=== PATIENT | male | born 1980 | race Caucasian/White ===

== ENCOUNTER 2017-03-08 16:27 | Emergency (ER) | payer MEDICAID, OTHER ==
[~2017-03-08] VITALS: Ht 180.3 cm; Wt 143.3 kg
[2017-03-08 17:04] VITALS: BP 144/79
--- NOTE | 2017-03-08 19:02 | NUR ---
Patient ambulated to bed 8. RN evaluating patient at bedside.
--- NOTE | 2017-03-08 19:02 | NUR ---
36 Y/O M W/C/O REQUESTING EVALUATION OF ETOH AND WANTING TO START ON LIBRIUM TO STOP DRINKING. HX ANXIETY AND HTN. VSS, PT DENIES ANY PAIN AT THE MOMENT.
--- NOTE | 2017-03-08 19:08 | NUR ---
Dr. Dasilva evaluating patient at bedside.
[2017-03-08 19:31] VITALS: BP 119/69
--- NOTE | 2017-03-08 19:31 | NUR ---
Patient discharged with v/s stable. Written and verbal after care instructions given and explained. Patient alert, oriented and verbalized understanding of instructions. Ambulatory with steady gait. All questions addressed prior to discharge. ID band removed. Patient advised to follow up with PMD OR RETURN BACK TO ER IF CONDITION WORSENS. Rx of CHLORDIAZEPOXIDE given. Patient educated on indication of medication including possible reaction and side effects. Opportunity to ask questions provided and answered.
== END 2017-03-08 19:31 | disposition home or self-care (01) ==
LOC: MED 16:27
DX: F10.10 Alcohol abuse, uncomplicated (principal); F41.9 Anxiety disorder, unspecified; I10 Essential (primary) hypertension
CPT/HCPCS: 99283

== ENCOUNTER 2018-10-25 09:50 | Emergency (ER) | payer MEDICAID ==
[~2018-10-25] VITALS: Ht 180.3 cm; Wt 146.1 kg
[2018-10-25 10:01] VITALS: BP 152/92
--- NOTE | 2018-10-25 10:10 | NUR ---
PATIENT AMBULATED TO BED 4 AT THIS TIME.
--- NOTE | 2018-10-25 10:17 | NUR ---
PT PRESENTS TO ED WITH COMPLAINTS OF ALCOHOL WITHDRAWAL. PT STATES HE IS FEELING ANXIOUS AND GENERALIZED BODY ACHES. WAS TELLING ED MD THAT HE NEEDS LITHIUM TO HELP WITH SYMPTOMS. PT IS SPEAKING EXCESSIVELY AND FIDGETING. HX OF SCHIZOPHRENIA AND BIPOLAR.
[2018-10-25 11:56] VITALS: BP 150/89
--- NOTE | 2018-10-25 11:57 | NUR ---
Patient discharged with v/s stable. Written and verbal after care instructions given and explained. Patient alert, oriented and verbalized understanding of instructions. Ambulatory with steady gait. All questions addressed prior to discharge. ID band removed. Patient advised to follow up with PMD. Rx of LIBRIUM given. Patient educated on indication of medication including possible reaction and side effects. Opportunity to ask questions provided and answered.
== END 2018-10-25 11:57 | disposition home or self-care (01) ==
LOC: MED 09:50
DX: F10.239 Alcohol dependence with withdrawal, unspecified (principal); F41.9 Anxiety disorder, unspecified; I10 Essential (primary) hypertension; F17.200 Nicotine dependence, unspecified, uncomplicated; Y90.9 Presence of alcohol in blood, level not specified
CPT/HCPCS: 99283

== ENCOUNTER 2020-07-25 08:41 | Inpatient (IN) | payer OTHER, SELFPAY ==
[~2020-07-25] VITALS: Ht 180.3 cm; Wt 90.7 kg
--- NOTE | 2020-07-25 08:41 | NUR ---
Patient BIBA BLS, transferred to bed 7. RN evaluating patient at bedside.
[2020-07-25 08:45] VITALS: BP 115/84
[2020-07-25] MEDS ORDERED: NACL 0.9% 1,000 ML IV SCH (08:55)
[2020-07-25 09:26] LABS: BASOPHILS % (AUTO) 0.7 % (0.0-2.0); EOSINOPHILS % (AUTO) 0.5 % (0.0-4.0); HEMATOCRIT 33.9 % (36-52); HEMOGLOBIN 11.3 g/dL (12.0-18.0); LYMPHOCYTES # (AUTO) 0.9 K/uL (2.0-11.5); LYMPHOCYTES % (AUTO) 19.1 % (20.5-51.1); MEAN CORPUSCULAR HEMOGLOBIN 32 pg (27-31); MEAN CORPUSCULAR HGB CONC 33 g/dL (33-37); MEAN CORPUSCULAR VOLUME 95.9 fL (80-94); MONOCYTES # (AUTO) 0.5 K/uL (0.8-1.0); MONOCYTES % (AUTO) 10.2 % (1.7-9.3); NEUTROPHILS # (AUTO) 3.2 K/uL (1.8-7.7); NEUTROPHILS % (AUTO) 69.5 % (42.2-75.2); PLATELET COUNT (AUTO) 112 K/uL (140-450); RED BLOOD CELL COUNT(AUTO) 3.53 MIL/uL (4.20-6.10); RED CELL DISTRIBUTION WIDTH 14.7 % (11.6-13.7); WHITE BLOOD COUNT (AUTO) 4.6 K/uL (4.8-10.8)
[2020-07-25] MEDS ORDERED: chlordiazePOXIDE 25 MG CAP ONE (09:33)
[2020-07-25] MEDS ORDERED: chlordiazePOXIDE 25 MG CAP PO SCH ×3 (09:40→13:00)
[2020-07-25 09:43] LABS: ALBUMIN 2.8 g/dL (3.4-5.0); ANION GAP 15.4 (8-16); CARBON DIOXIDE 27.2 mmol/L (21-32); CREATININE 0.6 mg/dL (0.6-1.3); POTASSIUM 3.6 mmol/L (3.5-5.1)
--- NOTE | 2020-07-25 09:52 | NUR ---
Patient returned from CT scan. RN reevaluating the patient at bedside.
[2020-07-25] MEDS ORDERED: cefTRIAXone 1,000 MG VIAL ONE (09:53)
[2020-07-25] MEDS ORDERED: BACITRACIN OINT 500 UNITS/GM PKT TP ONE (10:04)
[2020-07-25] MEDS ORDERED: ONDANSETRON 4 MG/2 ML VIAL IVP PRN (12:25)
[2020-07-25] MEDS ORDERED: ACETAMINOPHEN 325 MG TAB PO PRN (12:25)
[2020-07-25] MEDS ORDERED: DEXT 5% /NACL 0.9% 1,000 ML IV SCH (12:25)
[2020-07-25] MEDS: chlordiazePOXIDE 25 MG CAP PO SCH ×3 (12:30→21:43)
[2020-07-25 13:50] VITALS: BP 120/55
--- NOTE | 2020-07-25 13:50 | NUR ---
Patient will be admitted to care of DR BUENROSTRO. Admited to MED/SURG. Will go to room 106-B. Belongings list completed. Report to ADAM MENDOZA. ALL QUESTIONS ANSWERED, ENDORSED PT IN STABLE CONDITION, IN NAD, VSS. PT IN AGREEMENT WITH ADMISSION.
--- NOTE | 2020-07-25 14:17 | NUR ---
PATIENT ARRIVED FROM ER. TRANSFERRED SAFELY TO [facility] BED. BLE CELLULITIS REDNESS, INTACT, NO WEAPING OR OPEN WOUNDS. SCHEDULED MEDICATIONS DUE GIVEN. ON O2 2L/MIN VIA NC. ORIENTED PATIENT TO ROOM AND CALL LIGHT. SAFETY MEASURES IN PLACE, CALL LIGHT WITHIN REACH. WILL CONTINUE TO MONITOR.
[2020-07-25 16:00] VITALS: BP 120/55
--- NOTE | 2020-07-25 17:00 | NUR ---
PATIENT LYING DOWN IN BED SLEEPING, AROUSABLE BY VOICE. CONDITION UNCHANGED. WILL CONTINUE TO MONITOR .
[2020-07-25] MEDS ORDERED: LORazepam 2 MG/ML VIAL IVP PRN (17:20)
[2020-07-25] MEDS: DEXT 5% /NACL 0.9% 1,000 ML IV SCH (18:14)
[2020-07-25] MEDS ORDERED: Z-GUARD PASTE TP ONE (18:23)
--- NOTE | 2020-07-25 19:40 | NUR ---
GAVE REPORT TO IT MANAGER NURSE FOR CONTINUITY OF CARE. PATIENT IN STABLE CONDITION.
[2020-07-26] MEDS ORDERED: Z-GUARD PASTE TP SCH (01:00)
[2020-07-26] MEDS: DEXT 5% /NACL 0.9% 1,000 ML IV SCH ×2 (06:11→09:20)
--- NOTE | 2020-07-26 06:45 | NUR ---
PATIENT HAS BEEN SCREENED AND CATEGORIZED HIGH NUTRITION RISK. PATIENT WILL BE SEEN WITHIN 1-2 DAYS OF ADMISSION. 07/26/19-07/27/20 KRISTEL ADKINS MS, RDN
--- NOTE | 2020-07-26 07:30 | NUR ---
RECEIVED REPORT FROM TRIM MECHANIC NURSE. PATIENT IN BED AWAKE, ALERT, AOX3. PATIENT IS NOTED FALL RISK. IV SITE IN PLACE AND INTACT. SAFETY MEASURES ARE IN PLACE. CALL LIGHT WITHIN REACH. WILL CONTINUE TO MONITOR NEEDED.
[2020-07-26 07:54] LABS: BASOPHILS % (AUTO) 0.3 % (0.0-2.0); EOSINOPHILS % (AUTO) 0.5 % (0.0-4.0); HEMATOCRIT 26.7 % (36-52); LYMPHOCYTES # (AUTO) 0.7 K/uL (2.0-11.5); MEAN CORPUSCULAR HEMOGLOBIN 32 pg (27-31); MEAN CORPUSCULAR HGB CONC 34 g/dL (33-37); MEAN CORPUSCULAR VOLUME 95.6 fL (80-94); MONOCYTES # (AUTO) 0.4 K/uL (0.8-1.0); NEUTROPHILS # (AUTO) 2.4 K/uL (1.8-7.7); PLATELET COUNT (AUTO) 67 K/uL (140-450); RED CELL DISTRIBUTION WIDTH 15.6 % (11.6-13.7); WHITE BLOOD COUNT (AUTO) 3.6 K/uL (4.8-10.8)
[2020-07-26 08:00] VITALS: BP 106/48
[2020-07-26 08:34] VITALS: BP 126/62
[2020-07-26 08:34] LABS: ALBUMIN 2.2 g/dL (3.4-5.0); ANION GAP 11.7 (8-16); CARBON DIOXIDE 27.4 mmol/L (21-32); CREATININE 0.6 mg/dL (0.6-1.3); POTASSIUM 3.1 mmol/L (3.5-5.1); TOTAL BILIRUBIN 4.4 mg/dL (0.0-1.0)
[2020-07-26] MEDS: chlordiazePOXIDE 25 MG CAP PO SCH ×3 (08:58→20:13)
--- NOTE | 2020-07-26 09:00 | NUR ---
MEDICATIONS DUE GIVEN TO PATIENT. PATIENT LAB RESULTS FOR POTASSIUM IS 3.1 [address] IS 1.4. [address] BUENROSTRO MADE AWARE OF LOW LAB RESULTS WITH NEW ORDERS. WILL CONTINUE TO MONITOR NEEDED.
[2020-07-26 09:05] LABS: LYMPHOCYTES % (AUTO) 18.7 % (20.5-51.1); MONOCYTES % (AUTO) 12.5 % (1.7-9.3)
[2020-07-26] MEDS ORDERED: MAG SULF 2000 MG/WATER PREMIX 50 ML IV SCH (09:15)
[2020-07-26] MEDS ORDERED: POTASSIUM CHLORIDE 10 MEQ TABER PO SCH (09:15)
[2020-07-26] MEDS ORDERED: MULTIVITAMIN-12 10 ML, THIAMINE 100 MG, MAGNESIUM SULFATE 50% 2,000 MG, FOLIC ACID 1 MG... IV SCH ×5 (10:00)
[2020-07-26] MEDS ORDERED: VANCOMYCIN PER PHARMACY MC PRN (10:00)
--- NOTE | 2020-07-26 11:00 | NUR ---
PATIENT IV OUT AND REINSERTED IV ON THE RIGHT HAND AND LEFT HAND.
[2020-07-26 12:00] VITALS: BP 134/77
--- NOTE | 2020-07-26 12:00 | NUR ---
MEDICATION DUE GIVEN INFUSING WELL
--- NOTE | 2020-07-26 13:00 | NUR ---
Z GUARD APPLIED ON THE PERINEAL AND SCROTAL AREA.
[2020-07-26] MEDS: VANCOMYCIN 1,750 MG in DEXTROSE 5% 500 ML IV SCH ×2 (13:24→23:39)
[2020-07-26] MEDS: DEXT 5% / NACL 0.9% 1,000 ML IV SCH ×2 (14:35→23:38)
[2020-07-26] MEDS ORDERED: LORazepam 2 MG/ML VIAL IVP PRN (15:10)
[2020-07-26 16:00] VITALS: BP 133/66
--- NOTE | 2020-07-26 17:00 | NUR ---
MEDICATION DUE GIVEN CHECK VITAL SIGN PRIOR TO MEDICATION BP 133/66 IA 79. PATIENT COMPLAINS OF PAIN ON BOTH LOWER EXTREMITIES PAIN MEDICATION GIVEN
[2020-07-26] MEDS: HYDROcodone/APAP 5/325 MG 1 TAB TAB PO PRN ×2 (17:20→23:37)
--- NOTE | 2020-07-26 19:29 | NUR ---
ENDORSED CONTINUATION OF CARE TO PLOW AND BORING MACHINE TENDER NURSE. PT IS IN STABLE CONDITION.
[2020-07-26 20:00] VITALS: BP 122/68
[2020-07-26] MEDS: MAGNESIUM OXIDE 400 MG TAB PO SCH (20:13)
[2020-07-27 04:00] VITALS: BP 121/61
[2020-07-27] MEDS: DEXT 5% / NACL 0.9% 1,000 ML IV SCH ×3 (05:12→21:08)
[2020-07-27] MEDS: HYDROcodone/APAP 5/325 MG 1 TAB TAB PO PRN ×3 (05:15→20:29)
[2020-07-27 06:29] LABS: BASOPHILS % (AUTO) 0.6 % (0.0-2.0); EOSINOPHILS # (AUTO) 0.1 K/uL (0-0.4); EOSINOPHILS % (AUTO) 1.7 % (0.0-4.0); HEMATOCRIT 27.6 % (36-52); HEMOGLOBIN 9.3 g/dL (12.0-18.0); LYMPHOCYTES # (AUTO) 0.8 K/uL (2.0-11.5); LYMPHOCYTES % (AUTO) 25.4 % (20.5-51.1); MEAN CORPUSCULAR HEMOGLOBIN 33 pg (27-31); MEAN CORPUSCULAR HGB CONC 34 g/dL (33-37); MEAN CORPUSCULAR VOLUME 95.8 fL (80-94); MONOCYTES # (AUTO) 0.3 K/uL (0.8-1.0); MONOCYTES % (AUTO) 10.7 % (1.7-9.3); NEUTROPHILS # (AUTO) 1.9 K/uL (1.8-7.7); NEUTROPHILS % (AUTO) 61.6 % (42.2-75.2); PLATELET COUNT (AUTO) 61 K/uL (140-450); RED BLOOD CELL COUNT(AUTO) 2.87 MIL/uL (4.20-6.10); RED CELL DISTRIBUTION WIDTH 15.2 % (11.6-13.7)
[2020-07-27 06:35] LABS: BENZODIAZEPINE, URINE POS ng/mL (NEG <=200); CANNABINOID, URINE NEGATIVE ng/mL (NEG <=50); COCAINE, URINE NEGATIVE ng/mL (NEG <=300); OPIATE, URINE NEGATIVE ng/mL (NEG <=2000); PHENCYCLIDINE SCREEN,URINE NEGATIVE ng/mL (NEG <=25)
[2020-07-27 06:36] LABS: BARBITURATE, URINE NEGATIVE ng/ml (NEG <=200)
--- NOTE | 2020-07-27 07:11 | NUR ---
NURSE REPORT REPORT OBTAINED FROM NIGHT NURSE EVARISTO AT 07 AND THIS NURSE ASSUME CARE OF PATIENT UNTIL 729. T MAX- 99.6 F. RECEIVED NORCO FOR PAIN X 2, FOR PAIN IN BLE. ON VANCO. BANANA BAG IS DAILY. MED SURG PATIENT. ABLE TO AMB BUT WITH A UNSTEADY GAIT. ASKED FOR LIBRIUM FOR ANXIETY, BUT NOT YET DUE. GIVEN ATIVAN 0.5 MG IVP WITH RELIEF. REPORT GIVEN TO DAYSHIFT NURSE BANGURA TO ASSUME CARE OF PATIENT.
[2020-07-27 07:28] LABS: PROTHROMBIN TIME 13.3 secs (10.8-13.4)
--- NOTE | 2020-07-27 07:30 | NUR ---
RECEIVED REPORT FROM PIPE FINISHER NURSE. PATIENT IN BED AWAKE, ALERT, AOX3. RESPIRATIONS EVEN AND LABORED. ON ROOM AIR WITH O2 SATURATION AT 97%. SKIN IS INTACT WITH CELLULITIS ON LOWER EXTREMITIES. IV SITE ON LFA [address] AND INTACT. PLAN OF CARE WAS DISCUSSED. SAFETY MEASURES ARE IN PLACE. CALL LIGHT WITHIN REACH. WILL CONTINUE TO MONITOR NEEDED.
[2020-07-27 07:49] LABS: ALBUMIN 2.1 g/dL (3.4-5.0); ANION GAP 12.4 (8-16); CARBON DIOXIDE 26.4 mmol/L (21-32); CREATININE 0.5 mg/dL (0.6-1.3); MAGNESIUM 1.7 mg/dL (1.8-2.4); TOTAL BILIRUBIN 4.7 mg/dL (0.0-1.0)
[2020-07-27 08:00] VITALS: BP 131/82
--- NOTE | 2020-07-27 08:45 | NUR ---
FNS CONSULT RECEIVED FOR WOUNDS/PRESSURE ULCERS NOT APPROPRIATE FOR CELLULITIS. PATIENT WAS RE-SCREENED AND CATEGORIZED LOW NUTRITIONAL RISK AND WILL BE ASSESSED 7 DAYS WITHIN ADMISSION. 08/01/[address]
[2020-07-27] MEDS: chlordiazePOXIDE 25 MG CAP PO SCH ×4 (09:30→20:29)
--- NOTE | 2020-07-27 09:30 | NUR ---
ALL SCHEDULED MEDS GIVEN. PT IS STABLE NO DISTRESS NOTED. WILL CONTINUE TO MONITOR.
[2020-07-27] MEDS: MAGNESIUM OXIDE 400 MG TAB PO SCH ×2 (09:31→20:29)
[2020-07-27 09:36] LABS: POTASSIUM 2.8 mmol/L (3.5-5.1)
--- NOTE | 2020-07-27 10:05 | NUR ---
WOUND CARE EVALUATION NOTE: SKIN ASSESSMENT DONE WITH THIS PT. AAX4 ABLE TO TURN AN REPOSITION, MAD TO GROINS AND BUTTOCKS, BILATERAL LOWER LEG TO OXANA-ANKLE SKIN WARM WITH ERYTHEMA, PT. DENY NEEDLE INJECTIONS, MULTIPLE DRY SCABS AND ABRASIONS TO BLE, DORSAL FOOT +1 EDEMA, MULTIPLE ABRASIONS, NO OPEN ACTIVE WOUND.WOUND CARE TEACHING DONE AND POC DISCUSSED WITH PT. PT. VERBALIZES UNDERSTANDING. RECOMMEND TO CONTINUE ANTIBIOTIC TX FOR CELLULITIS. PAINT BLE SCABS/ABRASIONS WITH BETADINE SOLUTION BID AND OPEN TO AIR. Addendum: 07/27/20 at 1217 by Petreson Herrera RN (Grace) PLEASE CONTINUE Z-GUARD TO SCROTAL/PERINEAL MAD AREA ORDERED
[2020-07-27] MEDS: THIAMINE 100 MG TAB PO SCH (11:26)
[2020-07-27] MEDS: POTASSIUM CHLORIDE 10 MEQ TABER PO SCH ×2 (11:27→12:34)
--- NOTE | 2020-07-27 12:38 | NUR ---
PATIENT COMPLAINED OF LEG PAIN 12/03. ADMINISTERED NORCO PO PER MD ORDERED.
[2020-07-27] MEDS: VANCOMYCIN HCL 1.25 GM in DEXTROSE 5% 250 ML IV SCH ×2 (13:00→20:29)
[2020-07-27] MEDS: GAUZE TP SCH (13:00)
--- NOTE | 2020-07-27 14:00 | NUR ---
CHECKED ON PATIENT. PATIENT IS STABLE. NO RESPIRATORY DISTRESS OR CC OF COMPLAIN NOTED. WILL CONTINUE TO MONITOR.
--- NOTE | 2020-07-27 15:43 | NUR ---
DISCHARGE PLANNING: THIS IS A 39 Y/O MALE PATIENT BIBA FROM HOME DUE TO FALL, ALCOHOL ABUSE. PAST MEDICAL HISTORY INCLUDE ALCOHOL AND METHAMPHETAMINE ABUSE. INITIAL DIAGNOSIS OF ALCOHOL INTOXICATION. CURRENT LABS INCLUDE WBC 3.0, H/H 9.3/27.6, NA/K 138/2.8, BUN/CREA 8/0.5. UDS SHOWED POSITIVE FOR BENZO AND ALCOHOL LEVE; 443. RAPID COVID TEST NEGATIVE. ON ROOM AIR, O2 SAT 95%. ON VANCO AND ROCEPHIN. DC PLAN PENDING ON PATIENT'S RESPONSE TO TREATMENT. Addendum: 07/28/20 at 1518 by Ursula Sales CM DC LGSW: FAXED ORDER FOR SNF FOR IV ABX TO [facility]. ANAMARIA ESPANA AT [facility] SHE ASKED TO SEND THE REFERRAL TO [facility] Addendum: 07/29/20 at 1035 by Ursula Saels CM ANANTH HOLLEY: RECEIVED A CALL FROM CRISTA AT [facility] [phone] THEY ARE REVIEWING PATIENTS CLINICALS Addendum: 07/29/20 at 1436 by Ursula Sales CM ANANTH HOLLEY: FOLLOWED UP WITH CRISTA AT [facility] THEY ARE NOT ABLE TO ACCEPT. Addendum: 07/29/20 at 1521 by Ursula Sales CM ANANTH HOLLEY: FAXED PATIENTS PACKET TO ADDITIONAL FACILITIES. [facility], [facility], AND [facility]. Addendum: 07/30/20 at 1201 by Ursula Sales CM ANANTH HOLLEY: ALSO FAXED TO [facility]. PER DUSTY AT [facility] THEY ARE ABLE TO ACCEPT PATIENT ROOM [address]-B UNDER DR[address] KLEIN. Addendum: 07/30/20 at 1229 by Ursula Sales CM ANANTH HOLLEY: [facility] [address] [place] [id number] KLEIN 2:30 WINDOWS DESKTOP SUPPORT TIME WITH [facility] Addendum: 07/30/20 at 1232 by Ursula Sales CM NUMBER FOR REPORT [phone] NOTIFIED CHARGE NURSE OLIVEIRA OF WINDOWS DESKTOP SUPPORT TIME. NOTIFIED DUSTY AT [facility] OF WINDOWS DESKTOP SUPPORT TIME WELL.
[2020-07-27 16:00] VITALS: BP 142/83
--- NOTE | 2020-07-27 16:00 | NUR ---
CHECKED ON PATIENT. PATIENT IS STABLE NO DISTRESS NOTED. WILL CONTINUE TO MONITOR.
--- NOTE | 2020-07-27 17:10 | NUR ---
ALL SCHEDULED MEDS GIVEN. PT IS STABLE. NO CC OF PAIN OR DISTRESS NOTED. WILL CONTINUE TO MONITOR.
--- NOTE | 2020-07-27 19:30 | NUR ---
ENDORSED TO ACCOUNT SERVICES ASSOCIATE NURSE FOR CONTINUITY OF CARE. PT IS STABLE.
--- NOTE | 2020-07-27 19:57 | NUR ---
RECEIVED REPORT FROM WILLEM/RN, CARE ASSUMED.
[2020-07-27 20:00] VITALS: BP 136/80
[2020-07-28] MEDS: GAUZE TP SCH ×2 (01:00→13:35)
[2020-07-28 04:00] VITALS: BP 138/92
[2020-07-28] MEDS: VANCOMYCIN HCL 1.25 GM in DEXTROSE 5% 250 ML IV SCH ×3 (05:07→20:32)
[2020-07-28] MEDS: HYDROcodone/APAP 5/325 MG 1 TAB TAB PO PRN ×2 (05:08→20:30)
[2020-07-28] MEDS: DEXT 5% / NACL 0.9% 1,000 ML IV SCH ×3 (06:35→22:21)
--- NOTE | 2020-07-28 07:20 | NUR ---
RECEIVED PATIENT FROM NIGHT NURSE. PATIENT IN BED AWAKE AND ALERT. RESP EVEN AND UNLABORED ON ROOM AIR. DENIED OF PAIN AT THIS TIME. NO NOTED DISTRESS. RFA 20G INFUSING D5NS 125ML/HR. HOB ELEVATED. SAFETY MEASURES IN PLACE. CALL LIGHT WITHIN REACH. WILL CONTINUE TO MONITOR
--- NOTE | 2020-07-28 08:12 | NUR ---
RFA IV ACCESS WAS PULLED OUT DURING PATIENT TURNING. WILL ATTEMPT TO INSERT ANOTHER ACCESS. PATIENT VERBALIZED UNDERSTANDING.
[2020-07-28] MEDS: MAGNESIUM OXIDE 400 MG TAB PO SCH ×2 (09:57→20:30)
[2020-07-28] MEDS: MULTIVITAMIN/MINERALS 1 TAB PO SCH (09:57)
[2020-07-28] MEDS: THIAMINE 100 MG TAB PO SCH (09:59)
[2020-07-28] MEDS: chlordiazePOXIDE 25 MG CAP PO SCH ×4 (09:59→20:30)
--- NOTE | 2020-07-28 10:38 | NUR ---
IV ACCESS INSERTED TO LEFT UPPER ARM 20G USING ASEPTIC TECHNIQUE. ROCEPHIN INFUSING AT THIS TIME. MORNING ROUTINE MEDICATIONS GIVEN. PATIENT TOLERATED WELL. NO NOTED DISTRESS AT THIS TIME. CALL LIGHT WITHIN REACH. WILL CONTINUE TO MONITOR.
[2020-07-28 11:55] LABS: ANION GAP 8.2 (8-16); CARBON DIOXIDE 26.5 mmol/L (21-32); CREATININE 0.6 mg/dL (0.6-1.3); POTASSIUM 3.7 mmol/L (3.5-5.1)
--- NOTE | 2020-07-28 12:49 | NUR ---
PATIENT IN BED EATING LUNCH. NO NOTED DISTRESS. CALL LIGHT WITHIN REACH. WILL CONTINUE TO MONITOR.
--- NOTE | 2020-07-28 13:00 | NUR ---
SOCIAL WORK NOTE: Patient's Orientation Person Situation Place Time Information Provided By PATIENT Comments SW WAS ABLE TO MEET PATIENT AT BEDSIDE AND COMPLETED ASSESSMENT WITH PATIENT. Breakfast Server, Realtionship and Phone Number AL WILLSON SISTER [phone] [facility] Power of Carburetor Mechanic No Does Patient Have a POLST No Identifying Problems No Social Work Triggers Is A Social Work Consult Needed No Mandate Report Filed No Explanation Of Identifying Problems PATIENT IS A 39-YEAR-OLD MALE ADMITTED FOR ALCOHOL INTOXICATION. PATIENT HAS PMHX OF METHAMPHETAMINE AND ALCOHOL ABUSE BUT PATIENT DENIED SUBSTANCE ABUSE RESOURCES. PATIENT ACCEPTED HOMELESS RESOURCES, BUT STATED THAT HE LIVES WITH A FRIEND NAMED ROSAMARIA TURNER WHERE HE RENTS A ROOM. Admitted From Home Pre-Admission Level Of Functioning Status Independent/Ambulatory Prior Resources/Services Used In Last 12 Months No Prior Resources Used Prior DME No Prior DME Used Dialysis Comments N/A Living Situation Rents A Room Patient Had Caregiver No Home Support No Caregiver Issues Financial Issues No Known Financial Issue Referral To The Financial Counselor Needed No Factors/Needs Drug/Alcohol Treatment Pt/Rep Participated In Discharge Plan Yes Patient/Family Agress With Discharge Plan Yes Discharge Plan Comments TENTATIVE DISCHARGE PLAN IS FOR PATIENT TO RETURN HOME. DC Plan Status Initiated
--- NOTE | 2020-07-28 13:25 | NUR ---
WOUND CARE PROVIDED. AFFECTED AREAS RINSE WITH BETADINE AND LEAVE VALERY. NO OPEN SKIN AT THIS TIME.
--- NOTE | 2020-07-28 14:50 | NUR ---
PATIENT IN BED SLEEPING, CHEST NOTED RISING. NO NOTED ACUTE S/S DISTRESS. CALL LIGHT WITHIN REACH. WILL CONTINUE TO MONITOR.
[2020-07-28 16:00] VITALS: BP 137/85
--- NOTE | 2020-07-28 17:05 | NUR ---
PATIENT IN BED SLEEPING, CHEST NOTED RISING. NO ACUTE S/S DISTRESS. CALL LIGHT WITHIN REACH. WILL CONTINUE TO MONITOR.
--- NOTE | 2020-07-28 19:15 | NUR ---
RECEIVED BEDSIDE REPORT FROM DAY SHIFT NURSE. PATIENT IS AWAKE AND COOPERATIVE. RESPIRATION EVEN UNLABORED ON ROOM AIR. NO DISTRESS NOTED. SKIN IS WARM AND DRY. BLE CELLULITIS NOTED WITH OLD SCAB WOUNDS THAT ARE INTACT. IV PATENT AND INTACT. PLAN OF CARE WAS DISCUSSED, ALL SAFETY MEASURES IN PLACE. BED IS AT LOW POSITION. CALL LIGHT WITHIN REACH. WILL CONTINUE TO MONITOR.
--- NOTE | 2020-07-28 19:17 | NUR ---
ENDORSED PATIENT TO NIGHT NURSE. PATIENT IN STABLE CONDITION.
[2020-07-28 20:00] VITALS: BP 128/77
[2020-07-28 20:19] LABS: ANION GAP 13.1 (8-16); CARBON DIOXIDE 25.9 mmol/L (21-32); CREATININE 0.6 mg/dL (0.6-1.3)
--- NOTE | 2020-07-28 20:30 | NUR ---
ALL SCHEDULED MEDS GIVEN PER ORDER. PATIENT COMPLAINED OF LEG PAIN 6/10. PRN PAIN MED ADMINISTER PER ORDER. WILL CONTINUE TO MONITOR.
--- NOTE | 2020-07-28 21:30 | NUR ---
REASSESSED PATIENT PAIN. PATIENT VERBALIZE REDUCE PAIN. WILL CONTINUE TO MONITOR.
--- NOTE | 2020-07-28 22:45 | NUR ---
HELPED PATIENT AMBULATE TO THE BATHROOM.
--- NOTE | 2020-07-29 00:56 | NUR ---
MADE ROUNDS. PATIENT SLEEPING RESPIRATION EVEN UNLABORED ON ROOM AIR. NO DISTRESS NOTED. WILL CONTINUE TO MONITOR
[2020-07-29] MEDS: GAUZE TP SCH ×2 (01:06→09:32)
--- NOTE | 2020-07-29 02:30 | NUR ---
MADE ROUNDS. PATIENT SLEEPING RESPIRATION EVEN UNLABORED ON ROOM AIR. NO DISTRESS NOTED. WILL CONTINUE TO MONITOR
[2020-07-29 04:00] VITALS: BP 123/76
[2020-07-29] MEDS: VANCOMYCIN HCL 1.25 GM in DEXTROSE 5% 250 ML IV SCH ×3 (04:56→20:51)
--- NOTE | 2020-07-29 05:00 | NUR ---
ADMINISTER IV VANCO PER ORDER. WILL CONTINUE TO MONITOR
[2020-07-29 06:07] LABS: BASOPHILS % (AUTO) 0.5 % (0.0-2.0); EOSINOPHILS # (AUTO) 0.1 K/uL (0-0.4); EOSINOPHILS % (AUTO) 3.3 % (0.0-4.0); HEMATOCRIT 30.7 % (36-52); HEMOGLOBIN 10.1 g/dL (12.0-18.0); LYMPHOCYTES # (AUTO) 0.8 K/uL (2.0-11.5); MEAN CORPUSCULAR HEMOGLOBIN 32 pg (27-31); MEAN CORPUSCULAR HGB CONC 33 g/dL (33-37); MEAN CORPUSCULAR VOLUME 96.8 fL (80-94); MONOCYTES # (AUTO) 0.4 K/uL (0.8-1.0); MONOCYTES % (AUTO) 12.8 % (1.7-9.3); NEUTROPHILS % (AUTO) 59.4 % (42.2-75.2); PLATELET COUNT (AUTO) 85 K/uL (140-450); RED BLOOD CELL COUNT(AUTO) 3.17 MIL/uL (4.20-6.10); WHITE BLOOD COUNT (AUTO) 3.4 K/uL (4.8-10.8)
[2020-07-29] MEDS: DEXT 5% / NACL 0.9% 1,000 ML IV SCH ×3 (06:35→20:50)
--- NOTE | 2020-07-29 07:37 | NUR ---
ENDORSED PATIENT TO DAY SHIFT NURSE FOR CONTINUITY OF CARE.
[2020-07-29 08:38] VITALS: BP 136/87
[2020-07-29] MEDS: MULTIVITAMIN/MINERALS 1 TAB PO SCH (09:20)
[2020-07-29] MEDS: THIAMINE 100 MG TAB PO SCH (09:21)
[2020-07-29] MEDS: MAGNESIUM OXIDE 400 MG TAB PO SCH ×2 (09:21→21:10)
[2020-07-29] MEDS: chlordiazePOXIDE 25 MG CAP PO SCH ×3 (09:21→17:28)
[2020-07-29] MEDS: HYDROcodone/APAP 5/325 MG 1 TAB TAB PO PRN ×2 (09:31→17:44)
--- NOTE | 2020-07-29 10:40 | NUR ---
Patient awake, alert and oriented. Able to verbalize needs. Denies hallucinations and no shaking noted. Complained of Bilateral lower extremity pain and medication administered. Safety co measures in place and remains in bed with no further needs.
--- NOTE | 2020-07-29 12:58 | NUR ---
P.T. NOTES P.T. EVAL COMPLETED; REFER TO EVAL FOR DETAILS.
[2020-07-29 16:57] VITALS: BP 137/84
--- NOTE | 2020-07-29 19:30 | NUR ---
RECD. RESTING IN BED, AWAKE, A/OX4. RESPIRATION EVEN AND UNLABORED. IV OF D5NS 1NFUSING AT 125 ML/HR LEFT UPPER ARM G0. ABLE TO AMBULATE BY HIMSELF. WITH BILATERAL NON PITTING EDEMA ON BILATERAL LOWER EXTREMITIES, WITH SLIGHT REDNESS WITH SCATTERED SCABS ON BILATERAL FEET. ELEVATE BILATERAL LOWER EXTREMITIES ON PILLOWS. MEDICATIONS AND CARE FOR THE SHIFT DISCUSSED. VERBALIZED UNDERSTANDING. DENIES PAIN 0/10.
[2020-07-29 20:00] VITALS: BP 132/76
--- NOTE | 2020-07-29 20:51 | NUR ---
PATIENT WATCHING TV. VANCOMYCIN 1.25GM IVPB INFUSED BY ADAM SORTO.
--- NOTE | 2020-07-29 21:00 | NUR ---
REVIEWED POC WITH RAMSEY SYKES LVN AND WILL CONTINUE WITH PLAN OF CARE.
--- NOTE | 2020-07-29 22:30 | NUR ---
SLEEPING COMFORTABLY IN BED.
[2020-07-30] MEDS: HYDROcodone/APAP 5/325 MG 1 TAB TAB PO PRN ×2 (00:10→09:52)
[2020-07-30] MEDS: GAUZE TP SCH ×2 (00:13→14:55)
--- NOTE | 2020-07-30 05:00 | NUR ---
COMFORTABLE IN BED, SLEEPING ON HIS RIGHT SIDE.
[2020-07-30] MEDS: VANCOMYCIN HCL 1.25 GM in DEXTROSE 5% 250 ML IV SCH ×2 (05:52→13:00)
[2020-07-30] MEDS: DEXT 5% / NACL 0.9% 1,000 ML IV SCH ×2 (06:35→14:35)
--- NOTE | 2020-07-30 07:10 | NUR ---
ABLE TO SLEEP WELL. CONDITION REMAIN STABLE. ENDORSED TO AM SHIFT NURSE FOR CONTINUITY OF CARE.
[2020-07-30 08:00] VITALS: BP 125/64
[2020-07-30 09:16] LABS: BASOPHILS % (AUTO) 1.1 % (0.0-2.0); EOSINOPHILS # (AUTO) 0.1 K/uL (0-0.4); EOSINOPHILS % (AUTO) 2.8 % (0.0-4.0); HEMATOCRIT 32.9 % (36-52); HEMOGLOBIN 10.8 g/dL (12.0-18.0); LYMPHOCYTES # (AUTO) 0.7 K/uL (2.0-11.5); LYMPHOCYTES % (AUTO) 17.7 % (20.5-51.1); MEAN CORPUSCULAR HEMOGLOBIN 32 pg (27-31); MEAN CORPUSCULAR HGB CONC 33 g/dL (33-37); MEAN CORPUSCULAR VOLUME 97.5 fL (80-94); MONOCYTES # (AUTO) 0.6 K/uL (0.8-1.0); MONOCYTES % (AUTO) 15.4 % (1.7-9.3); NEUTROPHILS # (AUTO) 2.5 K/uL (1.8-7.7); PLATELET COUNT (AUTO) 99 K/uL (140-450); RED BLOOD CELL COUNT(AUTO) 3.37 MIL/uL (4.20-6.10); RED CELL DISTRIBUTION WIDTH 15.4 % (11.6-13.7); WHITE BLOOD COUNT (AUTO) 3.9 K/uL (4.8-10.8)
[2020-07-30 09:35] LABS: ALBUMIN 2.2 g/dL (3.4-5.0); CREATININE 0.7 mg/dL (0.6-1.3); MAGNESIUM 1.4 mg/dL (1.8-2.4); TOTAL BILIRUBIN 3.4 mg/dL (0.0-1.0)
[2020-07-30] MEDS: MULTIVITAMIN/MINERALS 1 TAB PO SCH (09:51)
[2020-07-30] MEDS: MAGNESIUM OXIDE 400 MG TAB PO SCH (09:51)
[2020-07-30] MEDS: chlordiazePOXIDE 25 MG CAP PO SCH ×2 (09:52→14:57)
[2020-07-30] MEDS: THIAMINE 100 MG TAB PO SCH (09:53)
[2020-07-30] MEDS ORDERED: MAG SULF 2000 MG/WATER PREMIX 50 ML IV SCH (10:00)
--- NOTE | 2020-07-30 10:45 | NUR ---
Patient alert, oriented and able to verbalize needs. Patient had complaints of bilateral feet pain and was given medication. Safety co measures in place with call light, bed lowered and condiments within reach.
[2020-07-30] MEDS ORDERED: VITA1TAB44 PO (14:15)
[2020-07-30] MEDS ORDERED: DOXY100C9 PO (14:15)
[2020-07-30] MEDS ORDERED: LIB25 PO (14:15)
[2020-07-30] MEDS ORDERED: ASPI-1884 PO (14:15)
[2020-07-30] MEDS ORDERED: THIA100T45 PO (14:15)
--- NOTE | 2020-07-30 15:29 | NUR ---
Nurse report for transfer given to Ronda Palm. All information regarding discharge given and all questions answered. Awaiting transportation for patient.
--- NOTE | 2020-07-30 17:44 | NUR ---
Patient discharge, information packet and discharge orders given to transport person for [facility] transport. Patient taken off the unit in [facility]. Vitals stable and had no complaints of pain.
== END 2020-07-30 16:30 | DRG 383 ==
LOC: MED 08:41 → MTU 11:52 → UNDOADMIN 11:52 → MMU 12:15 → MTU 12:15 → OBSVTOIN 07-26 10:21 → MTU 07-26 10:22
PROVIDERS: ADMIT Internal Medicine; ATTEND Internal Medicine
PROC: 3E0234Z Introduction of Serum, Toxoid and Vaccine into Muscle, Percutaneous Approach (ICD-10-PCS; principal; 2020-07-25)
DX: L03.116 Cellulitis of left lower limb (principal); L03.115 Cellulitis of right lower limb; E44.0 Moderate protein-calorie malnutrition; E83.42 Hypomagnesemia; R65.10 Systemic inflammatory response syndrome (SIRS) of non-infectious origin without acute organ dysfunction; F10.129 Alcohol abuse with intoxication, unspecified; K70.10 Alcoholic hepatitis without ascites; E87.6 Hypokalemia; Z20.822 Contact with and (suspected) exposure to COVID-19; I10 Essential (primary) hypertension; K70.30 Alcoholic cirrhosis of liver without ascites; Y90.8 Blood alcohol level of 240 mg/100 ml or more; I73.9 Peripheral vascular disease, unspecified; R27.0 Ataxia, unspecified; R53.81 Other malaise; W18.30XA Fall on same level, unspecified, initial encounter; Z04.3 Encounter for examination and observation following other accident; Z23 Encounter for immunization; Z59.0 Homelessness; Y93.89 Activity, other specified; Y92.89 Other specified places as the place of occurrence of the external cause; Y99.8 Other external cause status; Z68.27 Body mass index [BMI] 27.0-27.9, adult
CPT/HCPCS: 96361; 96365; 96372; 99285; G0378; 36415; 70450; 76700; 80048; 80053; 80202; 80305; 83690; 83735; 85025; 85610; 85651; 86140; 87081; 90715; 93925; 97110; 97112; 97116; 97530; A9153; G0482; J0696; J2060; J3370; J3411; J3475; J3490; J7030; J7042; J7060

== ENCOUNTER 2020-11-25 12:06 | Inpatient (IN) | payer OTHER, SELFPAY ==
[~2020-11-25] VITALS: Ht 180.3 cm; Wt 107.0 kg
[~2020-11-25 12:06] MED LIST: ASPI-1884 PO; DOXY100C9 PO; LIB25 PO; THIA100T45 PO; VITA1TAB44 PO
[2020-11-25 12:13] VITALS: BP 120/72
--- NOTE | 2020-11-25 12:13 | NUR ---
To lobby via whelechair; +seatbelted.
--- NOTE | 2020-11-25 12:45 | NUR ---
PT W/C ASSISTED TO BED 3.
--- NOTE | 2020-11-25 12:53 | NUR ---
40 y/o M BIBA from in front of [employer] store with c/c etoh abuse. Patient A&Ox4, wheelchair assisted reports he drank 4 tall cans a day and has a hx of alcoholism. Patient is requesting help for his alcoholism; states he normally drinks 10 tall cans of heavy beer per day. Patient also reports right thigh pain x "a few months" d/t hx cellulitis; 04/04, "painful/constant," non-radiating in nature. Patient states he was prescribed amoxicillin being nervous and associated nausea. Patient reports he lost his ABX a month ago. Denies any medications prior to arrival. HR 122 noted. Bed locked in lowest position, side rails x 1, call light in reach. PMH: Etoh abuse, HTN Meds: Hills, Amoxicillin, Librium NKA Sx: Denies
--- NOTE | 2020-11-25 13:20 | NUR ---
Dr. Florian at the bedside evaluating patient.
[2020-11-25] MEDS ORDERED: NACL 0.9% 1,000 ML IV ONE ×2 (13:25→15:40)
--- NOTE | 2020-11-25 13:35 | NUR ---
EMT at bedside for EKG.
--- NOTE | 2020-11-25 13:37 | NUR ---
Blood sample collected, walked to lab and handed to CPT. Harmony
[2020-11-25 13:45] LABS: BASOPHILS % (AUTO) 0.1 % (0.0-2.0); EOSINOPHILS % (AUTO) 0.2 % (0.0-4.0); HEMATOCRIT 30.5 % (36-52); HEMOGLOBIN 10.2 g/dL (12.0-18.0); LYMPHOCYTES # (AUTO) 0.5 K/uL (2.0-11.5); LYMPHOCYTES % (AUTO) 2.6 % (20.5-51.1); MEAN CORPUSCULAR HEMOGLOBIN 31 pg (27-31); MEAN CORPUSCULAR HGB CONC 33 g/dL (33-37); MEAN CORPUSCULAR VOLUME 92.7 fL (80-94); MONOCYTES % (AUTO) 9.9 % (1.7-9.3); NEUTROPHILS # (AUTO) 17.3 K/uL (1.8-7.7); NEUTROPHILS % (AUTO) 87.2 % (42.2-75.2); PLATELET COUNT (AUTO) 89 K/uL (140-450); RED BLOOD CELL COUNT(AUTO) 3.29 MIL/uL (4.20-6.10); RED CELL DISTRIBUTION WIDTH 14.8 % (11.6-13.7); WHITE BLOOD COUNT (AUTO) 19.8 K/uL (4.8-10.8)
[2020-11-25 14:13] LABS: ALBUMIN 2.1 g/dL (3.4-5.0); ANION GAP 17.8 (8-16); CARBON DIOXIDE 18.4 mmol/L (21-32); POTASSIUM 3.2 mmol/L (3.5-5.1); TOTAL BILIRUBIN 1.1 mg/dL (0.0-1.0)
--- NOTE | 2020-11-25 15:31 | NUR ---
Erma specimen collected and taken to the lab
[2020-11-25] MEDS ORDERED: MULTIVITAMIN-12 10 ML, THIAMINE 100 MG, MAGNESIUM SULFATE 50% 2,000 MG, FOLIC ACID 1 MG... IV SCH ×5 (15:35)
[2020-11-25] MEDS ORDERED: CEFEPIME 2,000 MG in DEXTROSE 5% 100 ML IV ONE (15:40)
--- NOTE | 2020-11-25 15:40 | NUR ---
Called to inform Billy from pharmacy of MDs order for IV fluids (banana bag). Billy aware of patient's name and order.
[2020-11-25] MEDS ORDERED: VANCOMYCIN 1,500 MG in DEXTROSE 5% 500 ML IV ONE (16:00)
[2020-11-25] MEDS ORDERED: ACETAMINOPHEN 325 MG TAB PO PRN (17:15)
[2020-11-25] MEDS ORDERED: LORazepam 2 MG/ML VIAL IVP PRN (17:15)
[2020-11-25] MEDS ORDERED: LEVOFLOXACIN 500 MG/D5W PREMIX 100 ML IV SCH (17:15)
[2020-11-25] MEDS ORDERED: NACL 0.9% 1,000 ML IV SCH (17:15)
[2020-11-25] MEDS ORDERED: ONDANSETRON 4 MG/2 ML VIAL IVP PRN (17:15)
[2020-11-25] MEDS ORDERED: FOLIC ACID 5 MG/ML SYR IM ONE (17:20)
[2020-11-25] MEDS ORDERED: MAG SULF 2000 MG/WATER PREMIX 50 ML IV ONE (17:20)
[2020-11-25] MEDS ORDERED: THIAMINE 200 MG/2 ML VIAL IM ONE (17:20)
[2020-11-25] MEDS ORDERED: MULTIVITAMIN-12 10 ML in NACL 0.9% 1,000 ML IV ONE (17:20)
[2020-11-25] MEDS ORDERED: CEFEPIME 2,000 MG VIAL IV ONE (17:38)
--- NOTE | 2020-11-25 17:58 | NUR ---
Critical lab value: Lactic Acid 3.[address] Lala made aware.
[2020-11-25] MEDS ORDERED: chlordiazePOXIDE 25 MG CAP ONE (18:03)
--- NOTE | 2020-11-25 18:20 | NUR ---
RECEIVED REPORT FROM ER NURSE. AWAITING PATIENT ARRIVAL TO TELEMETRY.
--- NOTE | 2020-11-25 18:28 | NUR ---
Patient will be admitted to care of Dr. Ramos. Admited to TELE. Will go to room 120b. Belongings list completed. Report to ADAM Jurado.
--- NOTE | 2020-11-25 18:30 | NUR ---
PATIENT ARRIVED ON FLOOR. PATIENT IN COMFORTABLE POSITION. LINENS CHANGED. GOWN CHANGED. VITAL SIGNS TEMP 102, PULSE 152, RATE 23, BP 149/79, O2 94. CALL LIGHT WITHIN REACH. DIETETICS TEACHER IN PLACE. WILL CONTINUE TO MONITOR. WILL ENDORSE TO MINE CAR REPAIRER RN.
--- NOTE | 2020-11-25 19:25 | NUR ---
ENDORSED CARE TO AVTAR MEDINA FOR CONTINUITY OF CARE.
--- NOTE | 2020-11-25 19:26 | NUR ---
RECEIVED REPORT FROM ESTHELA TOLEDO RN. PT AOX4 ON ROOM AIR. NO S/S RESPIRATORY DISTRESS. NO C/O PAIN AT THIS TIME. IV SITE RAC AND LAC, BOTH PATENT INTACT. SAFETY MEASURES IN PLACE. CALL LIGHT WITHIN REACH. WILL CONTINUE TO MONITOR
[2020-11-25 20:00] VITALS: BP 134/73
--- NOTE | 2020-11-25 20:30 | NUR ---
PATIENT NPO. TEMP 101.1, HR 150S TO 162, PAIN ON RIGHT FOOT. MD AWARE, PAGED DR. BAR. NEW ORDERS RECEIVED.
--- NOTE | 2020-11-25 21:12 | NUR ---
PRN TYLENOL GIVEN FOR TEMP 101.1, EDUCATION PROVIDED. COOLING MEASURES PROVIDED. NO DISTRESS NOTED. CALL LIGHT WITHIN REACH. WILL CONTINUE TO MONITOR
[2020-11-25] MEDS ORDERED: CLONIDINE HYDROCHLORIDE 0.1 MG TAB PO PRN (21:15)
--- NOTE | 2020-11-25 21:22 | NUR ---
PRN ATIVAN GIVEN FOR AGITATION. EDUCATION PROVIDED. NO DISTRESS NOTED. CALL LIGHT WITHIN REACH. WILL CONTINUE TO MONITOR
[2020-11-25 21:29] VITALS: BP 134/73
--- NOTE | 2020-11-25 21:30 | NUR ---
PRN CLONIDINE GIVEN FOR ELEVATED HR. HR 150 BP 134/73, EDUCATION PROVIDED. NO DISTRESS NOTED. CALL LIGHT WITHIN REACH. WILL CONTINUE TO MONITOR
--- NOTE | 2020-11-25 21:53 | NUR ---
MESSAGED DR. BAR. PATIENT WISHES TO GO AMA. EXPLAINED TO PATIENT THE DANGERS OF LEAVING THE HOSPITAL EARLY AND THE RISK AND BENEFITS OF RECEIVING CARE. PATIENT STILL WISHES TO LEAVE. PATIENT AOX4 ON ROOM AIR. NON-INTOXICATED. STEADY GAIT. IN NO DISTRESS. CALL LIGHT WITHIN REACH. WILL CONTINUE TO MONITOR
--- NOTE | 2020-11-25 22:21 | NUR ---
PAGED DR. BUENROSTRO. PATIENT STILL WISHES TO GO AMA AFTER RISK AND BENEFITS OF RECEIVING CARE WAS DISCUSSED.
--- NOTE | 2020-11-25 22:25 | NUR ---
PATIENT SIGNED AMA
--- NOTE | 2020-11-25 22:38 | NUR ---
PT LEFT AMA. CALLED AL (PT'S SISTER) TO INFORM, BUT NO ONE ANSWERING.
--- NOTE | 2020-11-25 22:38 | NUR ---
PATIENT LEFT AMA. REMOVED IVS, TELE BOX, AND ARM BAND. PATIENT AWAKE ALERT, AMBULATES WITH STEADY GAIT. DENIES DISCOMFORT, DENIES PAIN. IN NO DISTRESS.
--- NOTE | 2020-11-25 22:48 | NUR ---
TRIED CALLING PT'S SISTER AL TO GIVE UPDATE. NO ANSWER.
[2020-11-26] MEDS ORDERED: chlordiazePOXIDE 25 MG CAP PO SCH ×2 (09:00)
--- NOTE | 2020-11-26 14:07 | NUR ---
LATE ENTRY -- NS INFUSIONS, VANCOMYCIN, CEFEPIME, AND BANANA BAG COMPLETED AT 1825 FOR TRANSFER TO INPATIENT UNIT. INFUSIONS RESUMED IN INPATIENT TELE UNIT.
--- NOTE | 2020-11-28 11:32 | NUR ---
RECEIVED A CALL FROM LAB REGARDING THE RESULT OF BLOOD CULTURE E COLI ESBL, TRIED CALLING PATIENT AND FAMILY NUMBER [phone],NUMBER DISCONNECTED, WILL RELAY RESULT TO .
--- NOTE | 2020-11-28 11:36 | NUR ---
FAXED RESULT TO [phone]
--- NOTE | 2020-11-28 12:43 | NUR ---
CALL PLACE AGAIN TO SISTER NO ANSWER
--- NOTE | 2020-11-28 12:46 | NUR ---
INFORMED DR. PARISI OF THE RESULT OF BLOOD CULTURE.
== END 2020-11-25 22:40 | disposition left against medical advice (07) | DRG 770 ==
LOC: MED 12:06 → MTU 17:26
PROVIDERS: ADMIT Hospitalist; ATTEND Hospitalist
DX: F10.239 Alcohol dependence with withdrawal, unspecified (principal); R65.10 Systemic inflammatory response syndrome (SIRS) of non-infectious origin without acute organ dysfunction; E44.0 Moderate protein-calorie malnutrition; E87.1 Hypo-osmolality and hyponatremia; Z20.822 Contact with and (suspected) exposure to COVID-19
CPT/HCPCS: 36415; 71045; 80053; 82550; 83605; 85025; 87040; 93005; 96361; 96365; 96368; 99285; A9153; G0482; J0692; J2060; J3370; J3411; J3475; J3490; J7030; J7060

== ENCOUNTER 2021-01-05 19:21 | Emergency (ER) | payer OTHER, SELFPAY ==
[~2021-01-05] VITALS: Ht 182.9 cm; Wt 107.5 kg
--- NOTE | 2021-01-05 19:22 | NUR ---
BIBA TAKEN TO BED #4
[2021-01-05 19:25] VITALS: BP 142/78
--- NOTE | 2021-01-05 19:25 | NUR ---
PT BIBA FOR ETOH INTOXICATION. PER [facility], PT WAS FOUND LYING IN PLANTER BY BYSTANDER. PT REPORTS HE IS ALCOHOL INTOXICATED, REPORTING HE DRANK "7 TALL CANS" TODAY. PT NOTED WITH ABRASION TO RIGHT EYE, UPPER LIP AND RIGHT KNEE. PT REPORTS HE FELL WHILE TRYING TO WALK WITH HIS CANE EARLIER TODAY AROUND 1300. PTS SPEECH IS CLEAR. BILATERAL PERRLA. REPORTS PAIN 3/10 TO HIS BILATERAL LEGS THAT HAS BEEN ONGOING FOR MONTHS. PT REPORTS HE WAS AT [place] EARLIER TODAY, UNABLE TO GIVE REASON FOR VISIT, NOTED WITH WRIST BAND. MED HX: CELLULITS, SIEZURES, DM2, ALCOHOLISM ALLERGIES: NKA
--- NOTE | 2021-01-05 19:31 | NUR ---
Patient being evaluated by physician at bedside.
[2021-01-05] MEDS ORDERED: HYDROXYZINE HYDROCHLORIDE 25 MG TAB PO PRN (19:45)
--- NOTE | 2021-01-05 20:00 | NUR ---
LAB AT BEDSIDE.
--- NOTE | 2021-01-05 20:06 | NUR ---
XRAY AT BEDSIDE.
--- NOTE | 2021-01-05 20:16 | NUR ---
PT TAKEN TO CT VIA RVITOR.
[2021-01-05 20:17] LABS: BASOPHILS # (AUTO) 0.1 K/uL (0.00-0.22); BASOPHILS % (AUTO) 0.7 % (0.0-2.0); EOSINOPHILS # (AUTO) 0.2 K/uL (0-0.4); EOSINOPHILS % (AUTO) 2.3 % (0.0-4.0); HEMATOCRIT 25.8 % (36-52); HEMOGLOBIN 8.5 g/dL (12.0-18.0); LYMPHOCYTES % (AUTO) 31.8 % (20.5-51.1); MEAN CORPUSCULAR HEMOGLOBIN 32 pg (27-31); MEAN CORPUSCULAR HGB CONC 33 g/dL (33-37); MEAN CORPUSCULAR VOLUME 98.2 fL (80-94); MONOCYTES # (AUTO) 0.9 K/uL (0.8-1.0); MONOCYTES % (AUTO) 9.2 % (1.7-9.3); NEUTROPHILS # (AUTO) 5.2 K/uL (1.8-7.7); PLATELET COUNT (AUTO) 208 K/uL (140-450); RED BLOOD CELL COUNT(AUTO) 2.63 MIL/uL (4.20-6.10); RED CELL DISTRIBUTION WIDTH 17.7 % (11.6-13.7); WHITE BLOOD COUNT (AUTO) 9.3 K/uL (4.8-10.8)
[2021-01-05 20:27] LABS: APPEARANCE,URINE CLEAR (CLEAR); BILIRUBIN,URINE NEGATIVE (NEGATIVE); BLOOD, URINE 1+ (NEGATIVE); COLOR,URINE YELLOW (YELLOW); LEUKOCYTE ESTERASE ,URINE 3+ (NEGATIVE); NITRITE, URINE NEGATIVE (NEGATIVE); UGLUCOSE NEGATIVE (NEGATIVE)
--- NOTE | 2021-01-05 20:35 | NUR ---
PERINEAL CARE PERFORMED, BEDDING CHANGED, PT PLACED IN NEW GOWN AND REPOSITIONED FOR COMFORT.
[2021-01-05 20:40] LABS: ANION GAP 16.7 (8-16); CARBON DIOXIDE 21.8 mmol/L (21-32); CREATININE 1.2 mg/dL (0.6-1.3); POTASSIUM 3.5 mmol/L (3.5-5.1)
[2021-01-05] MEDS ORDERED: IBUPROFEN 600 MG TAB PO ONE (20:40)
--- NOTE | 2021-01-05 20:46 | NUR ---
PT PROVIDED ADDITIONAL WARM BLANKET AND SANDWICH.
[2021-01-05 20:47] LABS: WBC,URINE 60-80 /HPF (0-5)
--- NOTE | 2021-01-05 21:04 | NUR ---
PT TOLERATED FOOD AND WATER WELL. DENIES PAIN OR DISCOMFORT AT THIS TIME. RESTING COMFORTABLY IN BED.
[2021-01-05] MEDS ORDERED: CEPH-588 PO (21:17)
--- NOTE | 2021-01-05 21:59 | NUR ---
ATTEMPTED TO D/C PT. PT STATING "I WANT MY FUCKING LIBRIUM AND NORCO PRESCRIPTIONS. I DONT WANT ANTIBIOTICS. IM NOT LEAVING HERE." PT REFUSING D/C PAPERWORK AND WILL NOT SIGN. SECURITY PAGED FOR SUPPORT.
[2021-01-05 22:10] VITALS: BP 126/62
--- NOTE | 2021-01-05 22:10 | NUR ---
SECURITY AT BEDSIDE. PT PROVIDED NEW PANTS. OFFERED FOOD AND DRINK, BUT PT REFUSED.
--- NOTE | 2021-01-05 22:10 | NUR ---
Patient discharged with v/s stable. PT REFUSED D/C PAPERWORK. Patient alert, oriented and verbalized understanding of instructions. Wheel Chair Assisted by SECURITY. All questions addressed prior to discharge. ID band removed. Patient advised to follow up with PMD. Opportunity to ask questions provided and answered.
[2021-01-06] MEDS ORDERED: LIB25 PO (08:20)
[2021-01-06] MEDS ORDERED: CEPH-588 PO (08:20)
== END 2021-01-05 22:10 | disposition home or self-care (01) ==
LOC: MED 19:21
DX: F10.129 Alcohol abuse with intoxication, unspecified (principal); L03.116 Cellulitis of left lower limb; L03.115 Cellulitis of right lower limb; E11.9 Type 2 diabetes mellitus without complications; I10 Essential (primary) hypertension; F15.90 Other stimulant use, unspecified, uncomplicated; Z79.899 Other long term (current) drug therapy; Z59.0 Homelessness
CPT/HCPCS: 36415; 70450; 71045; 80048; 81001; 85025; 86140; 87086; 99285

== ENCOUNTER 2021-01-06 07:25 | Emergency (ER) | payer OTHER ==
[~2021-01-06] VITALS: Ht 180.3 cm; Wt 107.5 kg
[~2021-01-06 07:25] MED LIST changes: -ASPI-1884 PO; +CEPH-588 PO; -DOXY100C9 PO; -LIB25 PO; -THIA100T45 PO; -VITA1TAB44 PO
[2021-01-06 07:39] VITALS: BP 150/80
--- NOTE | 2021-01-06 07:39 | NUR ---
to bed via wheel chair
--- NOTE | 2021-01-06 07:50 | NUR ---
Dr. Lara is evaluating the patient at bedside.
[2021-01-06] MEDS: cephALEXin 500 MG CAP PO ONE (08:10)
[2021-01-06] MEDS: KETOROLAC 30 MG/ML VIAL IM ONE (08:13)
[2021-01-06] MEDS ORDERED: LIB25 PO (08:20)
[2021-01-06] MEDS ORDERED: CEPH-588 PO (08:20)
--- NOTE | 2021-01-06 08:27 | NUR ---
Patient is a 40 y/o male A&O x4 c/o BLE swelling and pain. Per patient, has had "cellulitis" in the past and this is his third episode. Patient states that he normally takes Keflex for the cellulitis. Patient also c/o alcohol withdrawals, last drink yesterday, drinks approximately "12 tall cans or more" per day. Patient unable to describe the pain but rates it 10/10 on a pain scale. PMH:DM RX: denies NKA
[2021-01-06 08:42] VITALS: BP 150/80
--- NOTE | 2021-01-06 08:42 | NUR ---
Patient discharged with v/s stable. Written and verbal after care instructions given and explained. Patient alert, oriented and verbalized understanding of instructions. Wheel Chair Assisted with to car. All questions addressed prior to discharge. ID band removed. Patient advised to follow up with PMD. Rx of librium given. Patient educated on indication of medication including possible reaction and side effects. Opportunity to ask questions provided and answered.
[2021-01-07] MEDS ORDERED: CEPH500C16 PO (04:16)
== END 2021-01-06 08:42 | disposition home or self-care (01) ==
LOC: MED 07:25
DX: F10.239 Alcohol dependence with withdrawal, unspecified (principal); L03.115 Cellulitis of right lower limb; L03.116 Cellulitis of left lower limb; E11.9 Type 2 diabetes mellitus without complications; F03.90 Unspecified dementia, unspecified severity, without behavioral disturbance, psychotic disturbance, mood disturbance, and anxiety; I10 Essential (primary) hypertension; Z79.899 Other long term (current) drug therapy
CPT/HCPCS: 96372; 99283; J1885

== ENCOUNTER 2021-01-07 00:50 | Emergency (ER) | payer OTHER ==
[~2021-01-07] VITALS: Ht 177.8 cm; Wt 106.6 kg
[2021-01-07 00:50] VITALS: BP 152/102
[~2021-01-07 00:50] MED LIST changes: +LIB25 PO
--- NOTE | 2021-01-07 00:50 | NUR ---
Patient ambulated from [facility] to [facility] to a/w bed.
--- NOTE | 2021-01-07 03:16 | NUR ---
PT TAKEN TO BED 6
--- NOTE | 2021-01-07 03:44 | NUR ---
Dr. George examining patient.
[2021-01-07] MEDS ORDERED: ACETAMINOPHEN EXTRA STRENGTH 500 MG TAB PO ONE (03:50)
[2021-01-07] MEDS ORDERED: CEPH500C16 PO (04:16)
[2021-01-07 04:20] VITALS: BP 152/102
--- NOTE | 2021-01-07 04:20 | NUR ---
40/M PT JOSE MARIA, FOUND AT 7 ELEVEN [place] IN [place]. PER [facility], PT STATES "TAKE ME TO [facility], IM MAD THEY DIDNT GIVE ME PAIN MEDICATION YESTERDAY." PT WAS SEEN YESTERDAY FOR ALCOHOL WITHRAWAL AND LEG CELLULITIS AND WAS GIVEN PRESCRIPTIONS. PT A & O X4, GCS 15. NKDA
== END 2021-01-07 05:26 | disposition home or self-care (01) ==
LOC: MED 00:50
DX: F10.129 Alcohol abuse with intoxication, unspecified (principal); E11.9 Type 2 diabetes mellitus without complications; I10 Essential (primary) hypertension; F03.90 Unspecified dementia, unspecified severity, without behavioral disturbance, psychotic disturbance, mood disturbance, and anxiety; Z79.899 Other long term (current) drug therapy; Y90.9 Presence of alcohol in blood, level not specified
CPT/HCPCS: 99283

== ENCOUNTER 2021-05-19 18:52 | Emergency (ER) | payer OTHER ==
[~2021-05-19] VITALS: Ht 180.3 cm; Wt 120.2 kg
[~2021-05-19 18:52] MED LIST changes: +CEPH500C16 PO
[2021-05-19 18:56] VITALS: BP 154/100
--- NOTE | 2021-05-19 19:01 | NUR ---
PT TO AWAIT IN LOBBY, STEADY GAIT
--- NOTE | 2021-05-19 21:44 | NUR ---
PT SEEN AND D/C BY DR YANG, NO NURSING INTERVENTIONS PROVIDED
[2021-05-19 21:45] VITALS: BP 154/100
--- NOTE | 2021-05-19 21:45 | NUR ---
Patient discharged with v/s stable. Written and verbal after care instructions given and explained. Patient verbalized understanding. Ambulatory with steady gait. All questions addressed prior to discharge. Advised to follow up with PMD. PT IN LOBBY WAITING FOR RIDE. Addendum: 05/19/21 at 2212 by [email or web address] Patient discharged with v/s stable. Written and verbal after care instructions given and explained. Patient verbalized understanding. All questions addressed prior to discharge. Advised to follow up with PMD. PT IN LOBBY WAITING FOR RIDE IN WHEELCHAIR.
--- NOTE | 2021-05-19 21:46 | NUR ---
The patient's care was reviewed and supervised by Sofia Vasquez RN. PT PROVIDED WITH HOMELESS PACKET, ALCOHOL USE PACKET, AND FOOD. HOMLESS WAIVER SIGNED. PT TO WAIT FOR RIDE.
== END 2021-05-19 21:45 | disposition home or self-care (01) ==
LOC: MED 18:52
DX: F10.129 Alcohol abuse with intoxication, unspecified (principal); M79.672 Pain in left foot; M79.671 Pain in right foot; E11.9 Type 2 diabetes mellitus without complications; F03.90 Unspecified dementia, unspecified severity, without behavioral disturbance, psychotic disturbance, mood disturbance, and anxiety; I10 Essential (primary) hypertension; Z79.899 Other long term (current) drug therapy
CPT/HCPCS: 99281

== ENCOUNTER 2021-05-20 04:59 | Emergency (ER) | payer OTHER ==
[~2021-05-20] VITALS: Ht 180.3 cm; Wt 107.5 kg
[2021-05-20 05:12] VITALS: BP 144/95
--- NOTE | 2021-05-20 05:12 | NUR ---
Dr. Valverde examining patient.
--- NOTE | 2021-05-20 05:16 | NUR ---
patient to lobby
[2021-05-20] MEDS ORDERED: chlordiazePOXIDE 25 MG CAP PO ONE (05:20)
--- NOTE | 2021-05-20 05:20 | NUR ---
The patient's care was reviewed and supervised by Radha Ramos RN, RN.
--- NOTE | 2021-05-20 05:20 | NUR ---
PT WAS GIVEN A BUS PASS UPON D/C.
--- NOTE | 2021-05-20 05:20 | NUR ---
Patient discharged with v/s stable. Written and verbal after care instructions given and explained. Patient verbalized understanding. Ambulatory with steady gait. All questions addressed prior to discharge. Advised to follow up with PMD.
[2021-05-20 05:39] VITALS: BP 144/95
== END 2021-05-20 05:20 | disposition home or self-care (01) ==
LOC: MED 04:59
DX: F10.10 Alcohol abuse, uncomplicated (principal); E11.9 Type 2 diabetes mellitus without complications; I10 Essential (primary) hypertension; F03.90 Unspecified dementia, unspecified severity, without behavioral disturbance, psychotic disturbance, mood disturbance, and anxiety; F14.90 Cocaine use, unspecified, uncomplicated; Z79.899 Other long term (current) drug therapy
CPT/HCPCS: 99283

== ENCOUNTER 2022-01-04 08:35 | Inpatient (IN) | payer OTHER ==
[~2022-01-04] VITALS: Ht 180.3 cm; Wt 152.9 kg
--- NOTE | 2022-01-04 08:37 | NUR ---
Patient BIBA to bed 3 at this time.
[2022-01-04 08:42] VITALS: BP 155/83
--- NOTE | 2022-01-04 09:00 | NUR ---
41YO MALE PT BIBA FROM STREETS C/O THROBBING 10/10 BILATERAL LEG PAIN X1 WEEK . PER [facility], PT WAS BROUGHT FROM [facility] UNABLE TO WALK DUE TO PAIN. UPON ARRIVAL PT AAOX4, WITH DELAYED AND SLURRED SPEECH. PT IS A DAILY DRINKER AND STATES HAVING "3 SHOTS OF VODKA" PRIOR TO ARRIVAL TO HELP EASE PAIN. PT PRESENTS WITH +2 PITTING EDEMA BILATERAL IN LOWER EXTREMETIES AND TENDER TO TOUCH. PT R LEG HAS 4 ULCERS ON OUTER OROZCO , (1) [id number] AND TUNNELING , (2) [id number] (3) [id number] (4) [id number].PT STATES CELLULITS INITIALLY BEGAN X1 MONTH AGO. PT STATES USING PROIXIDE TO CLEAN WOUND. PT REPORTS PREVIOUSLY BEING SEEN AT [facility] AND LEFT AMA. DENIES N/V/D, SOB OR CHEST PAIN. RESPIRATIONS EVEN AND UNLABORED. NO ACTIVE BLEEDING OR DRAINAGE AT THIS TIME. PT UNCOMPLIANT WITH MEDS. NKA Addendum: 01/04/22 at 1346 by PHSEP HX :DM, HTN, ANXIETY, ALCHOLISM NKA
[2022-01-04] MEDS ORDERED: NACL 0.9% 1,000 ML IV SCH (09:10)
--- NOTE | 2022-01-04 09:24 | NUR ---
LAB AT BEDSIDE
[2022-01-04] MEDS ORDERED: VANCOMYCIN 1,000 MG in DEXTROSE 5% 250 ML IV ONE (09:25)
--- NOTE | 2022-01-04 09:31 | NUR ---
PT TAKEN TO CT VIA [facility]
--- NOTE | 2022-01-04 09:31 | NUR ---
ATTEMPTED TO DO AN EKG, PT BEING TAKEN TO CT VIA [facility].
--- NOTE | 2022-01-04 09:32 | NUR ---
Tristen osei in [facility] - 01/04/22 at 0933 by PHSEP PT TAKEN TO MOOKIE CHEN
--- NOTE | 2022-01-04 09:44 | NUR ---
PT SWABBED FOR COVID(JACQUES) HANDED TO [address] ATTENDANT CHICHO
[2022-01-04] MEDS ORDERED: VANCOMYCIN 1,000 MG VIAL ONE (10:14)
--- NOTE | 2022-01-04 10:25 | NUR ---
PT AT REST AND SLEEPING. PT ON MONITOR
[2022-01-04 10:36] LABS: BASOPHILS % (AUTO) 0.6 % (0.0-2.0); EOSINOPHILS # (AUTO) 0.1 K/uL (0-0.4); EOSINOPHILS % (AUTO) 3.4 % (0.0-4.0); HEMATOCRIT 22.2 % (36-52); LYMPHOCYTES # (AUTO) 0.9 K/uL (2.0-11.5); LYMPHOCYTES % (AUTO) 21.1 % (20.5-51.1); MEAN CORPUSCULAR HEMOGLOBIN 28 pg (27-31); MEAN CORPUSCULAR HGB CONC 32 g/dL (33-37); MEAN CORPUSCULAR VOLUME 88.3 fL (80-94); MONOCYTES # (AUTO) 0.4 K/uL (0.8-1.0); MONOCYTES % (AUTO) 10.5 % (1.7-9.3); NEUTROPHILS # (AUTO) 2.8 K/uL (1.8-7.7); NEUTROPHILS % (AUTO) 64.4 % (42.2-75.2); PLATELET COUNT (AUTO) 108 K/uL (140-450); RED BLOOD CELL COUNT(AUTO) 2.52 MIL/uL (4.20-6.10); RED CELL DISTRIBUTION WIDTH 22.3 % (11.6-13.7); WHITE BLOOD COUNT (AUTO) 4.3 K/uL (4.8-10.8)
[2022-01-04 10:48] LABS: ALBUMIN 1.8 g/dL (3.4-5.0); ANION GAP 10.4 (8-16); CARBON DIOXIDE 23.8 mmol/L (21-32); POTASSIUM 4.2 mmol/L (3.5-5.1); TOTAL BILIRUBIN 0.8 mg/dL (0.0-1.0)
[2022-01-04 10:57] LABS: ACETAMINOPHEN < 0.5 ug/ml (10-30); SALICYLATE < 2.8 mg/dL (2.8-20.0)
--- NOTE | 2022-01-04 11:58 | NUR ---
PT REFUSED STRAIGHT CATH. URINAL PROVIDED
[2022-01-04] MEDS ORDERED: MAGNESIUM OXIDE 400 MG TAB PO PRN (12:10)
[2022-01-04] MEDS ORDERED: ONDANSETRON 4 MG/2 ML VIAL IVP PRN (12:10)
[2022-01-04] MEDS ORDERED: LORazepam 1 MG TAB PO PRN (12:10)
[2022-01-04] MEDS ORDERED: MAG SULF 2000 MG/WATER PREMIX 50 ML IV PRN (12:10)
[2022-01-04] MEDS ORDERED: POTASSIUM CHLORIDE 10 MEQ TABER PO PRN (12:10)
[2022-01-04] MEDS ORDERED: MORPHINE SULFATE 4 MG/ML SYR IVP PRN (12:10)
[2022-01-04] MEDS ORDERED: VANCOMYCIN PER PHARMACY MC PRN (12:10)
[2022-01-04] MEDS ORDERED: ACETAMINOPHEN 325 MG TAB PO PRN (12:10)
[2022-01-04] MEDS ORDERED: HYDROcodone/APAP 5/325 MG 1 TAB TAB PO PRN (12:10)
[2022-01-04] MEDS ORDERED: KCL 20 MEQ/WATER INJ PREMIX 200 ML IV PRN (12:10)
[2022-01-04] MEDS ORDERED: ZOLPIDEM 5 MG TAB PO PRN (12:10)
[2022-01-04 12:52] LABS: PROTHROMBIN TIME 11.6 secs (10.8-13.4)
[2022-01-04 13:35] LABS: BILIRUBIN,URINE NEGATIVE (NEGATIVE); BLOOD, URINE 3+ (NEGATIVE); COLOR,URINE YELLOW (YELLOW); LEUKOCYTE ESTERASE ,URINE NEGATIVE (NEGATIVE); NITRITE, URINE NEGATIVE (NEGATIVE); UGLUCOSE NEGATIVE (NEGATIVE)
[2022-01-04 13:37] LABS: APPEARANCE,URINE HAZY (CLEAR)
[2022-01-04 13:45] LABS: CALCIUM OXALATE CRYSTALS,UR None Seen /HPF (None Seen); COARSE GRANULAR CASTS,URINE None Seen /LPF (None Seen); FINE GRANULAR CASTS,URINE None Seen /LPF (None Seen); HYALINE CASTS, URINE None Seen /LPF (None Seen); OTHER CRYSTALS,URINE None Seen /HPF (None Seen); TRICHOMONAS,URINE None Seen /HPF (None Seen); TRIPLE PHOSPHATE CRYSTAL,UR None Seen /HPF (None Seen); URIC ACID CRYSTALS,URINE None Seen /HPF (None Seen); URINE AMORPHOUS URATE None Seen /HPF (None Seen); WBC,URINE 0-5 /HPF (0-5); YEAST,URINE None Seen /HPF (None Seen)
[2022-01-04 13:46] LABS: OTHER CASTS, URINE None Seen /LPF (None Seen); RED BLOOD CELL CASTS,URINE None Seen /LPF (None Seen); WAXY CASTS,URINE None Seen /LPF (None Seen)
[2022-01-04 13:47] LABS: BARBITURATE, URINE NEGATIVE ng/ml (NEG <=200); BENZODIAZEPINE, URINE POSITIVE ng/mL (NEG <=200); CANNABINOID, URINE NEGATIVE ng/mL (NEG <=50); COCAINE, URINE NEGATIVE ng/mL (NEG <=300); OPIATE, URINE NEGATIVE ng/mL (NEG <=2000); PHENCYCLIDINE SCREEN,URINE NEGATIVE ng/mL (NEG <=25)
[2022-01-04] MEDS ORDERED: cefTRIAXone 1,000 MG VIAL ONE (13:47)
[2022-01-04] MEDS ORDERED: MORPHINE SULFATE 2 MG/ML SYR IVP ONE (14:00)
--- NOTE | 2022-01-04 14:30 | NUR ---
PT PROVIDED WITH LUNCH. PT AWAKE EATING IN BED
--- NOTE | 2022-01-04 16:25 | NUR ---
MD MANN AT BEDSIDE FOR EVALUATION
[2022-01-04 16:30] VITALS: BP 160/90
--- NOTE | 2022-01-04 16:30 | NUR ---
PT REPORTS NEW ONSET OF ANXIETY. PT RESTLESS AND WITH CHILLS
--- NOTE | 2022-01-04 16:36 | NUR ---
ATTEMPT TO CALL DR ESPITIA FOR PT UPDATE. LEFT MESSAGE W/ PHOTOCOPYING EQUIPMENT REPAIRER
--- NOTE | 2022-01-04 17:30 | NUR ---
MD ESPITIA UPDATED AND MADE AWARE PT STATUS. TO CHANGE ORDERS
--- NOTE | 2022-01-04 18:34 | NUR ---
Patient does not wish to proceed with medical care recommended by MD ESPITIA. Patient given information related to possible complications, up to and including , which could occur as a result of leaving hospital at this time. Patient verbalizes understanding of risks involved leaving against medical advice. Patient has signed AMA form.
[2022-01-04] MEDS ORDERED: VANCOMYCIN 1,500 MG in DEXTROSE 5% 500 ML IV SCH (19:00)
== END 2022-01-04 18:34 | disposition left against medical advice (07) | DRG 383 ==
LOC: MED 08:35 → MTU 12:08
PROVIDERS: ADMIT Internal Medicine; ATTEND Internal Medicine
DX: L03.115 Cellulitis of right lower limb (principal); A41.9 Sepsis, unspecified organism; G92.8 Other toxic encephalopathy; E43 Unspecified severe protein-calorie malnutrition; T51.91XA Toxic effect of unspecified alcohol, accidental (unintentional), initial encounter; E11.9 Type 2 diabetes mellitus without complications; G40.909 Epilepsy, unspecified, not intractable, without status epilepticus; I10 Essential (primary) hypertension; L03.116 Cellulitis of left lower limb; F10.20 Alcohol dependence, uncomplicated; Y90.9 Presence of alcohol in blood, level not specified; Z20.822 Contact with and (suspected) exposure to COVID-19; F10.229 Alcohol dependence with intoxication, unspecified; Y90.6 Blood alcohol level of 120-199 mg/100 ml; Z68.42 Body mass index [BMI] 45.0-49.9, adult
CPT/HCPCS: 36415; 70450; 80053; 80305; 81001; 82140; 83605; 85025; 85610; 85730; 86886; 86900; 86901; 86920; 87040; 87086; 93005; 96365; 96375; 99285; G0480; G0482; J0696; J2270; J3370; J7060

== ENCOUNTER 2022-03-26 16:52 | Emergency (ER) | payer OTHER ==
[~2022-03-26] VITALS: Ht 180.3 cm; Wt 127.0 kg
[2022-03-26 17:00] VITALS: BP 110/70
--- NOTE | 2022-03-26 18:04 | NUR ---
HOMELESS. BIBA OUT SIDE OF [facility] C/O CHRONIC WOUND RIGHT LOWER LEG & PAIN X 2 MONTHS. BLOOD SUGAR 137 AT THIS TIME. pt unsure of what kind of sx he had, pt currently slurring speech, smells etoh, states he drinks every day unknown amount today. pmh: etoh, htn, dm2 nka med: metformin (non compliant)
[2022-03-26 18:14] VITALS: BP 110/70
--- NOTE | 2022-03-26 18:14 | NUR ---
PATIENT LEFT WITHOUT BEING SEEN BY DR. GONZALEZ. NO FURTHER CARE PROVIDED FOR PATIENT.
== END 2022-03-26 18:14 | disposition left against medical advice (07) ==
LOC: MED 16:52
DX: M79.661 Pain in right lower leg (principal); Z53.21 Procedure and treatment not carried out due to patient leaving prior to being seen by health care provider
CPT/HCPCS: 82948

== ENCOUNTER 2022-03-28 09:19 | Inpatient (IN) | payer OTHER ==
[~2022-03-28] VITALS: Ht 180.3 cm; Wt 108.0 kg
--- NOTE | 2022-03-28 09:20 | NUR ---
BIBA TAKEN TO BED 7
[2022-03-28 09:21] VITALS: BP 131/69
--- NOTE | 2022-03-28 11:18 | NUR ---
41/M JOSE MARIA FROM [facility]. EMS STATES PATIENT CALLED 911 REPORTING RIGHT LOWER LEG PAIN X1 MONTH. PATIENT STATES POSSIBLE BUG BITE THAT HAS SINCE WORSENED, OPEN WOUNDS AND SWELLING NOTED TO LOWER LEG, PATIENT DENIES FEVERS CHILLS, ADMITS TO CONSUMING "VODKA AND BEER" PRIOR TO CALLING 911.
--- NOTE | 2022-03-28 11:52 | NUR ---
Dr. Kc evaluating patient at bedside.
[2022-03-28] MEDS ORDERED: cefTRIAXone 1,000 MG VIAL ONE (12:18)
[2022-03-28 12:24] LABS: BASOPHILS # (AUTO) 0.1 K/uL (0.00-0.22); BASOPHILS % (AUTO) 1.7 % (0.0-2.0); EOSINOPHILS # (AUTO) 0.1 K/uL (0-0.4); EOSINOPHILS % (AUTO) 3.3 % (0.0-4.0); HEMATOCRIT 23.2 % (36-52); HEMOGLOBIN 7.5 g/dL (12.0-18.0); LYMPHOCYTES # (AUTO) 0.9 K/uL (2.0-11.5); MEAN CORPUSCULAR HEMOGLOBIN 27 pg (27-31); MEAN CORPUSCULAR HGB CONC 32 g/dL (33-37); MONOCYTES # (AUTO) 0.3 K/uL (0.8-1.0); MONOCYTES % (AUTO) 10.9 % (1.7-9.3); NEUTROPHILS # (AUTO) 1.6 K/uL (1.8-7.7); NEUTROPHILS % (AUTO) 53.1 % (42.2-75.2); PLATELET COUNT (AUTO) 83 K/uL (140-450); RED BLOOD CELL COUNT(AUTO) 2.73 MIL/uL (4.20-6.10); RED CELL DISTRIBUTION WIDTH 19.6 % (11.6-13.7)
[2022-03-28] MEDS: NACL 0.9% 1,000 ML IV SCH ×4 (12:25→21:15)
[2022-03-28] MEDS: cefTRIAXone 1,000 MG in DEXT 5% MINI-BAG PLUS 50 ML IV ONE ×2 (12:25→12:28)
[2022-03-28 12:53] LABS: ALBUMIN 2.4 g/dL (3.4-5.0); ANION GAP 14.5 (8-16); CARBON DIOXIDE 24.4 mmol/L (21-32); POTASSIUM 3.9 mmol/L (3.5-5.1)
[2022-03-28] MEDS ORDERED: ONDANSETRON 4 MG/2 ML VIAL IVP PRN (13:15)
--- NOTE | 2022-03-28 13:34 | NUR ---
Lab at bedside.
[2022-03-28 13:57] LABS: CARBON DIOXIDE 23.9 mmol/L (21-32); CREATININE 0.8 mg/dL (0.6-1.3); POTASSIUM 3.9 mmol/L (3.5-5.1)
--- NOTE | 2022-03-28 14:20 | NUR ---
Patient is laying in bed sleeping. Patient has no signs of distress noted. All needs met by staff.
--- NOTE | 2022-03-28 16:40 | NUR ---
Patient will be admitted to care of Dr. Ramos. Admited to Med-Surg. Will go to room 120-A. Belongings list completed. Report to ADAM Vegas.
--- NOTE | 2022-03-28 16:45 | NUR ---
RECEIVED REPORT FROM ER NURSE, MIMI. PT A/O X3. ABLE TO MAKE NEEDS KNOWN. RR EVEN & UNLABORED. ON RA. O2 SATURATION @ 98%. MILD HAND TREMORS NOTED. PT TALKATIVE. MED SURG. R LEG NOTED WITH OPEN WOUND, NO DRAINAGE, ERYTHEMA, SWELLING, AND WARM TO TOUCH. BLE SWELLING. CONTINENT. PROVIDED, ORAL FLUIDS, JELLO, AND SANDWICH. NEEDS ALL MET AT THIS TIME. VSS. ALL SAFETY MEASURES IN PLACE. ORIENTED PT TO ROOM.
--- NOTE | 2022-03-28 17:21 | NUR ---
The patient's care was reviewed and supervised by Iliana Johns RN.
[2022-03-28 17:50] VITALS: BP 152/93
[2022-03-28] MEDS: ACETAMINOPHEN 325 MG TAB PO PRN (18:01)
[2022-03-28] MEDS: LORazepam 2 MG/ML VIAL IVP PRN ×2 (18:02→22:57)
--- NOTE | 2022-03-28 18:36 | NUR ---
NOTIFIED OF PT'S CALCIUM LEVEL. AWAITING REPLY.
--- NOTE | 2022-03-28 18:40 | NUR ---
DR. PARISI ORDER FOR IONIZED CALCIUM. WILL INPUT PER MD ORDER.
--- NOTE | 2022-03-28 19:24 | NUR ---
REPORT GIVEN TO NIGHTSTNFT NURSEREMI FOR CONTINUITY OF CARE.
[2022-03-28 20:00] VITALS: BP 150/80
[2022-03-28] MEDS ORDERED: MEROPENEM 1,000 MG VIAL IV ONE (21:27)
[2022-03-28] MEDS: MEROPENEM 1,000 MG in NACL 0.9% 50 ML IV SCH (21:49)
--- NOTE | 2022-03-28 22:57 | NUR ---
PT COMPLAINTS OF HAVING ANXIETY AND AGITATION. MEDICATION ADMINISTERED ORDER.
[2022-03-28] MEDS: MORPHINE SULFATE 2 MG/ML SYR IVP PRN (23:12)
[2022-03-29] MEDS: NACL 0.9% 1,000 ML IV SCH ×3 (02:00→13:19)
[2022-03-29 04:00] VITALS: BP 146/74
[2022-03-29] MEDS: MEROPENEM 1,000 MG in NACL 0.9% 50 ML IV SCH ×3 (05:00→21:24)
[2022-03-29] MEDS ORDERED: MEROPENEM 1,000 MG VIAL IV ONE (05:54)
[2022-03-29] MEDS: LORazepam 2 MG/ML VIAL IVP PRN ×3 (06:11→21:52)
[2022-03-29] MEDS: MORPHINE SULFATE 2 MG/ML SYR IVP PRN (06:13)
--- NOTE | 2022-03-29 06:13 | NUR ---
PT COMPLAINTS OF HAVING INCREASE ANXIETY AND AGITATION, PT ALSO COMPLAINT OF BACK ACHE AND BLE PAIN 02/02. PAIN MEDS MORPHINE AND ATIVAN ADMINISTERED ORDER.
[2022-03-29 06:51] LABS: ALBUMIN 2.3 g/dL (3.4-5.0); ANION GAP 14.4 (8-16); CARBON DIOXIDE 25.6 mmol/L (21-32); CREATININE 0.8 mg/dL (0.6-1.3); MAGNESIUM 1.5 mg/dL (1.8-2.4); TOTAL BILIRUBIN 1.7 mg/dL (0.0-1.0)
[2022-03-29 06:55] LABS: LYMPHOCYTES # (AUTO) 0.4 K/uL (2.0-11.5); MONOCYTES # (AUTO) 0.3 K/uL (0.8-1.0); NEUTROPHILS # (AUTO) 1.3 K/uL (1.8-7.7)
[2022-03-29 07:10] LABS: BASOPHILS % (AUTO) 1.3 % (0.0-2.0); HEMATOCRIT 22.9 % (36-52); HEMOGLOBIN 7.5 g/dL (12.0-18.0); LYMPHOCYTES % (AUTO) 19.3 % (20.5-51.1); MEAN CORPUSCULAR HEMOGLOBIN 27 pg (27-31); MEAN CORPUSCULAR HGB CONC 33 g/dL (33-37); MEAN CORPUSCULAR VOLUME 84.2 fL (80-94); MONOCYTES % (AUTO) 13.7 % (1.7-9.3); NEUTROPHILS % (AUTO) 63.7 % (42.2-75.2); RED BLOOD CELL COUNT(AUTO) 2.72 MIL/uL (4.20-6.10); RED CELL DISTRIBUTION WIDTH 19.5 % (11.6-13.7)
--- NOTE | 2022-03-29 07:24 | NUR ---
RECEIVED PT FROM BINDERY PRODUCTION MANAGER NURSE FOR CONTINUITY OF CARE. PATIENT IN BED . NO DISTRESS NOTED. IV SITE ON LEFT A/C ROBERTO 20. ALL SAFETY MEASURES IN PLACE. CALL LIGHT WITHIN REACH.
[2022-03-29 08:00] VITALS: BP 156/77
--- NOTE | 2022-03-29 08:09 | NUR ---
RESIDENT NOTED MAGNESIUM LEVEL IS 1.[address] LONGORIA WAITING FOR RESPONSE.
[2022-03-29 08:25] LABS: PLATELET COUNT (AUTO) 60 K/uL (140-450)
--- NOTE | 2022-03-29 08:26 | NUR ---
RECEIVED CALL FROM LAB, SPOKE TO PORTER WHO INFORMED ME OF CRITICAL LAB VALUE OF WBC 2.0. LEFT MESSAGE TO DR PARISI, WAITING FOR RESPONSE.
[2022-03-29] MEDS ORDERED: MAG SULF 2000 MG/WATER PREMIX 50 ML IV SCH (08:37)
--- NOTE | 2022-03-29 10:44 | NUR ---
PATIENT HAS BEEN SCREENED AND CATEGORIZED LOW NUTRITION RISK. PATIENT WILL BE SEEN WITHIN 7 DAYS OF ADMISSION. 03/28/22-04/04/[address]
--- NOTE | 2022-03-29 11:08 | NUR ---
PATIENT COMPLAINING OF ANXIETY AND GENERALIZED PAIN AND REQUESTED FOR ATIVAN FIRST. RN GAVE ATIVAN ORDERED.
[2022-03-29] MEDS: ACETAMINOPHEN 325 MG TAB PO PRN (11:14)
--- NOTE | 2022-03-29 12:20 | NUR ---
DC PLANNING SW AND CM MET WITH PATIENT AT BEDSIDE TO COMPLETE ASSESSMENT. PATIENT IS READMIT FROM 03/10. PATIENT REPORTS NO CHANGES FROM LAST MEETING. PT REPORTS CHRONIC HOMELESSNESS SINCE HE WAS 23 YRS OLD. PATIENT PROVIDED MAILING ADDRESS OF Ryan [place]. [facility] [id number]. PATIENT REPORTS MAILING ADDRESS HIS FATHERS HOME. PATIENT IDENTIFIED PIOTR SWEENEY (FATHER)[phone] EMERGENCY CONTACT AND MDM. PATIENT DENIED HAVING AD IN PLACE AND DECLINED AD OFFERED BY SW. PATIENT STRUGGLED TO RECALL LAST PCP VISIT. SPOKE TO PATIENT ABOUT THE IMPORTANCE OF F/U CARE.PATIENT WAS RECEPTIVE AND ONLY NODDED HIS HEAD. SW INQUIRED ON MAKING F/U APPT FOR PATIENT, PATIENT DECLINED. PATIENT REPORTS INCOME SOURCE SSI AND REPORTS RECEIVING $1,127/ MONTHLY. PATIENT REPORTS HE WILL TYPICALLY STAY IN A HOTEL FOR A WEEK WHEN HE RECEIVES HIS SSI. PATIENT REPORTS BEING INDEPENDENT IN ALL ACTIVITIES AND DENIES USE OF DME. 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 PATIENT DENIES MEETING WITH THERAPIST OR TAKING MEDICATION TO MANAGE MH DX. PATIENT HAS CHRONIC HX OF SUBSTANCE USE AND REPORTS SUBSTANCE OF CHOICE ALCOHOL AND METH USE. PATIENT DECLINED RESOURCES OFFERED BY SW HOWEVER, SW SPOKE WITH PATIENT ABOUT THE IMPORTANCE OF UTILIZING RESOURCES TO AID IN HIS SOBRIETY. PT REFUSED MENTAL HEALTH, SUBSTANCE USE, EMERGENCY ASSISTANCE AND HOMELESS RESOURCES, PATIENT REPORTS HE STILL HAS RESOURCES PROVIDED AT LAST VISIT.
--- NOTE | 2022-03-29 14:25 | NUR ---
SEEN BY DR. LONGORIA AT BED SIDE.
[2022-03-29 16:00] VITALS: BP 151/75
--- NOTE | 2022-03-29 19:33 | NUR ---
GAVE REPORT TO STOVE MOUNTER NURSE FOR CONTINUITY OF CARE.
--- NOTE | 2022-03-29 21:52 | NUR ---
PT VERBALIZED OF ANXIETY, ATIVAN ADMINISTERED ORDERED. PT AWAKE AND VERBALLY RESPONSIVE.
[2022-03-30 04:00] VITALS: BP 133/56
[2022-03-30] MEDS: NACL 0.9% 1,000 ML IV SCH ×3 (05:15→21:15)
[2022-03-30] MEDS: MEROPENEM 1,000 MG in NACL 0.9% 50 ML IV SCH ×3 (05:43→21:00)
--- NOTE | 2022-03-30 07:15 | NUR ---
RESIDENT ALERT ABLE TO MAKE NEEDS KNOWN RESPIRATION EVEN AND NOT LABORED NO SHORTNESS OF BREATH. ON ROOM AIR. IV SITE ON LEFT AC ROBERTO 20 RUNNING NS AT 125 /HOUR. RESIDENT ON BED ASLEEP ALL SAFETY MEASURE IN PLACE.
--- NOTE | 2022-03-30 08:00 | NUR ---
DISCUSSED AND REVIEWED PLAN OF CARE WITH MARY JANE COX. PT IN STABLE CONDITION. Addendum: 03/30/22 at 1251 by Steve Chen RN MARY JANE GLASS
--- NOTE | 2022-03-30 09:31 | NUR ---
WOUND CARE NOTE: WOUND ASSESSMENT DONE TO BLE. MULTIPLE DRY STABLE SCABS TO RLE, TRACE EDEMA. RIGHT LOWER LEG SURGICAL WOUND, 7.5x1.5x0.5CM WOUND BED 100% PINK TISSUE, SMALL AMOUNT SEROUS DRAINAGE WITH NO ODOR AFTER CLEANSE WITH NS, WOUND EDGE FLAT AND ATTACHED. OXANA WOUND SKIN 9 OCLOCK DIRECTION 1X1X0.3CM FULL THICKNESS SKIN LOSS WOUND BED PINK, MOIST, NO ODOR, WOUND EDGE FLAT. POC DISCUSSED WITH PT. PT. VERBALIZES UNDERSTANDING. RECOMMENDATIONS: -CLEANSE RLE WOUNDS WITH WOUND CARE SOLUTION, PAT DRY, APPLY SILVASORB GEL WITH OIL EMULSION DRESSING AND COVER WITH DRY DRESSING DAILY AND PRN IF SOILING.
--- NOTE | 2022-03-30 09:39 | NUR ---
PATIENT CALLED TO EMPTY HIS URINAL AND TO GET ICE WATER. EMPTY 800 CC OF URINE YELLOW COLOR NO SEDIMENT NOTED OR BLEEDING. PATIENT FINISHED EATING BREAKFAST ATE 90 % OF HIS BREAKFAST GIVEN PITCHER OF ICE WATER REQUESTED. RIGHT LEG DRESSING INTACT AND NO DRAINAGE NOTED.
--- NOTE | 2022-03-30 12:59 | NUR ---
ADAM GUTIERREZ GAVE IV ANTIBIOTIC TOLERATED WELL NO ADVERSE REACTION NOTED.
[2022-03-30] MEDS: GAUZE TP SCH (13:16)
--- NOTE | 2022-03-30 13:30 | NUR ---
DRESSING ON HIS LEG CHANGE NOTED WITH SCANT DRAINAGE NO FOUL ODOR NOTED. PATIENT TOLERATED WELL.
[2022-03-30 16:00] VITALS: BP 158/93
--- NOTE | 2022-03-30 17:00 | NUR ---
PATIENT REQUESTED FOR WATER AND SANDWICH. IV HYDRATION STILL RUNNING NO FLUID OVERLOAD NOTED.
--- NOTE | 2022-03-30 18:43 | NUR ---
PATIENT ON STABLE CONDITION FINISH ATE DINNER TOLERATED WELL.
--- NOTE | 2022-03-30 19:22 | NUR ---
GIVE REPORT TO FLOWER [employer]OP LABORER/DESIGNER NURSE RAMSEY FOR CONTINUITY OF CARE. PATIENT ON STABLE CONDITION. CALL LIGHT WITH IN EASY REACH.
--- NOTE | 2022-03-30 19:24 | NUR ---
RECD. SITTING ON BED, AWAKE, A/OX4. RESPIRATION EVEN AND UNLABORED. IV OF NS INFUSING AT 125 ML/HR, LEFT AC G20. WOUND IN RIGHT LOWER LEG COVERED WITH DRESSING DRY AND INTACT. AMBULATORY TO THE BATHROOM. ON IV ANTIBIOTICS. DENIES PAIN 0/10.
--- NOTE | 2022-03-30 20:00 | NUR ---
Patient's Plan of Care was discussed and reviewed with ASPHALT DISTRIBUTOR TENDER: RAMSEY SYKES
--- NOTE | 2022-03-30 20:30 | NUR ---
AMBULATED TO THE BR TO VOID, BACK TO BED AFTER VOIDING.
--- NOTE | 2022-03-30 21:25 | NUR ---
FOUND PATIENT SITTING ON BED WITH GOWN TAKEN OFF. INFORMED THAT ANTIBIOTICS WILL BE ADMINISTERED TONIGHT. VERBALIZED HE WILL GO HOME AFTER ANTIBIOTICS WAS GIVEN TO HIM. EXPLAINED THAT HE NEEDS TO COMPLETE THE ANTIBIOTICS ORDERED BY THE DOCTOR FOR HIM.
--- NOTE | 2022-03-30 22:00 | NUR ---
ELEVATED RIGHT LEG ON TWO PILLOWS.
--- NOTE | 2022-03-30 22:45 | NUR ---
IN BED, COVERED HIS BODY WITH BLANKETS. NO DISTRESS NOTED.
[2022-03-30] MEDS: LORazepam 2 MG/ML VIAL IVP PRN (23:04)
--- NOTE | 2022-03-30 23:04 | NUR ---
WITH ANXIETY, MEDICATED WITH ATIVAN PER MD ORDER BY ADAM KHALIL.
[2022-03-31] VITALS: BP 146/84
--- NOTE | 2022-03-31 00:05 | NUR ---
NO ANXIETY, RESTING COMFORTABLY SLEEPING IN BED.
--- NOTE | 2022-03-31 02:30 | NUR ---
SLEEPING COMFORTABLY IN BED, RESPIRATION EVEN AND UNLABORED. CALL LIGHT IN REACH.
--- NOTE | 2022-03-31 04:30 | NUR ---
STILL SLEEPING COMFORTABLY IN BED. NO APPARENT DISTRESS NOTED.
[2022-03-31] MEDS: NACL 0.9% 1,000 ML IV SCH ×2 (05:48→13:15)
[2022-03-31] MEDS: LORazepam 2 MG/ML VIAL IVP PRN (06:12)
--- NOTE | 2022-03-31 06:12 | NUR ---
WITH ANXIETY, MEDICATED WITH ATIVAN PER MD ORDER BY ADAM KHALIL.
[2022-03-31] MEDS: ACETAMINOPHEN 325 MG TAB PO PRN (06:18)
[2022-03-31] MEDS: MEROPENEM 1,000 MG in NACL 0.9% 50 ML IV SCH ×2 (06:28→12:29)
--- NOTE | 2022-03-31 06:55 | NUR ---
NO ANXIETY NOTED, SLEEPING COMFORTABLY IN BED.
--- NOTE | 2022-03-31 07:30 | NUR ---
CONDITION REMAIN STABLE. ENDORSED TO AM SHIFT NURSE FOR CONTINUITY OF CARE.
[2022-03-31 08:00] VITALS: BP 164/88
[2022-03-31] MEDS ORDERED: MAG SULF 2000 MG/WATER PREMIX 50 ML IV PRN (12:15)
[2022-03-31] MEDS: GAUZE TP SCH (13:00)
[2022-03-31] MEDS ORDERED: SULF-954 PO (14:22)
[2022-03-31] MEDS ORDERED: AMOX-1230 PO (14:22)
[2022-03-31 14:29] VITALS: BP 145/72
--- NOTE | 2022-03-31 14:35 | NUR ---
patient discharged at this time. instructions given;patient verbalize understanding.
== END 2022-03-31 15:05 | disposition home or self-care (01) | DRG 775 ==
LOC: MED 09:19 → MMU 13:18 → MTU 13:18
PROVIDERS: ADMIT Hospitalist; ATTEND Hospitalist
DX: F10.139 Alcohol abuse with withdrawal, unspecified (principal); F10.129 Alcohol abuse with intoxication, unspecified; R65.10 Systemic inflammatory response syndrome (SIRS) of non-infectious origin without acute organ dysfunction; E44.0 Moderate protein-calorie malnutrition; L03.115 Cellulitis of right lower limb; E11.9 Type 2 diabetes mellitus without complications; I10 Essential (primary) hypertension; Z20.822 Contact with and (suspected) exposure to COVID-19; Y90.9 Presence of alcohol in blood, level not specified; J98.11 Atelectasis; Z87.891 Personal history of nicotine dependence; Z68.33 Body mass index [BMI] 33.0-33.9, adult
CPT/HCPCS: 36415; 71045; 80048; 80053; 82330; 83605; 83735; 83880; 84484; 85025; 85610; 85730; 87040; 87070; 87075; 87081; 87186; 93005; 96365; 99285; G0482; J0696; J2060; J2185; J2270; J3475

== ENCOUNTER 2022-06-12 23:51 | Emergency (ER) | payer OTHER ==
[~2022-06-12] VITALS: Ht 177.8 cm; Wt 74.8 kg
[~2022-06-12 23:51] MED LIST changes: +AMOX-1230 PO; -CEPH-588 PO; -CEPH500C16 PO; -LIB25 PO; +SULF-954 PO
[2022-06-12 23:55] VITALS: BP 142/96
--- NOTE | 2022-06-12 23:58 | NUR ---
PT JOSE MARIA VIEIRA. TAKEN TO BED 11
--- NOTE | 2022-06-13 | NUR ---
JOSE MARIA FROM STREET WITH C/O BLE PAIN AND ETOH CONSUMPTION. AMBULATES FROM AMBULANCE [facility] TO ER [facility]. PT HAS PMH OF HTN AND BIPOLAR, IS NON-COMPLIANT WITH MEDS AND TREATMENT PMH : SCHIZOPHRENIA, BIPOLAR, ETOH
--- NOTE | 2022-06-13 01:43 | NUR ---
Dr. Machuca examining patient.
[2022-06-13] MEDS ORDERED: SULF-59 PO (05:06)
== END 2022-06-13 05:43 | disposition home or self-care (01) ==
LOC: MED 23:51
DX: S81.801A Unspecified open wound, right lower leg, initial encounter (principal); F10.129 Alcohol abuse with intoxication, unspecified; F03.90 Unspecified dementia, unspecified severity, without behavioral disturbance, psychotic disturbance, mood disturbance, and anxiety; I10 Essential (primary) hypertension; Z79.899 Other long term (current) drug therapy; Y90.9 Presence of alcohol in blood, level not specified; X58.XXXA Exposure to other specified factors, initial encounter; Y93.89 Activity, other specified; Y92.89 Other specified places as the place of occurrence of the external cause; Y99.8 Other external cause status
CPT/HCPCS: 99283

== ENCOUNTER 2022-06-14 14:05 | Inpatient (IN) | payer OTHER ==
[~2022-06-14] VITALS: Ht 172.7 cm; Wt 99.8 kg
[~2022-06-14 14:05] MED LIST changes: +SULF-59 PO
[2022-06-14 14:07] VITALS: BP 158/96
[2022-06-14] MEDS ORDERED: ACETAMINOPHEN EXTRA STRENGTH 500 MG TAB PO ONE (14:25)
[2022-06-14] MEDS ORDERED: VANCOMYCIN 1,000 MG in DEXTROSE 5% 250 ML IV ONE (14:25)
[2022-06-14] MEDS ORDERED: NACL 0.9% 1,000 ML IV ONE (14:25)
--- NOTE | 2022-06-14 14:46 | NUR ---
TO ER BED 9 FROM RADIOLOGY
[2022-06-14 14:55] LABS: BASOPHILS # (AUTO) 0.1 K/uL (0.00-0.22); EOSINOPHILS # (AUTO) 0.2 K/uL (0-0.4); EOSINOPHILS % (AUTO) 3.2 % (0.0-4.0); HEMOGLOBIN 7.5 g/dL (12.0-18.0); LYMPHOCYTES # (AUTO) 1.4 K/uL (2.0-11.5); LYMPHOCYTES % (AUTO) 27.2 % (20.5-51.1); MEAN CORPUSCULAR HEMOGLOBIN 24 pg (27-31); MEAN CORPUSCULAR HGB CONC 31 g/dL (33-37); MEAN CORPUSCULAR VOLUME 78.5 fL (80-94); MONOCYTES # (AUTO) 0.6 K/uL (0.8-1.0); MONOCYTES % (AUTO) 10.8 % (1.7-9.3); NEUTROPHILS % (AUTO) 57.8 % (42.2-75.2); PLATELET COUNT (AUTO) 122 K/uL (140-450); RED BLOOD CELL COUNT(AUTO) 3.06 MIL/uL (4.20-6.10); RED CELL DISTRIBUTION WIDTH 19.9 % (11.6-13.7); WHITE BLOOD COUNT (AUTO) 5.2 K/uL (4.8-10.8)
[2022-06-14] MEDS ORDERED: VANCOMYCIN 1,000 MG VIAL ONE (15:08)
[2022-06-14 15:27] LABS: ALBUMIN 1.9 g/dL (3.4-5.0); ANION GAP 11.6 (8-16); CARBON DIOXIDE 28.5 mmol/L (21-32); CREATININE 0.9 mg/dL (0.6-1.3); POTASSIUM 4.1 mmol/L (3.5-5.1); TOTAL BILIRUBIN 1.6 mg/dL (0.0-1.0)
[2022-06-14 16:05] VITALS: BP 123/68
[2022-06-14] MEDS ORDERED: VANCOMYCIN PER PHARMACY MC PRN (16:25)
[2022-06-14] MEDS ORDERED: NACL 0.9% 1,000 ML IV SCH (16:25)
[2022-06-14] MEDS ORDERED: MORPHINE SULFATE 4 MG/ML SYR IVP PRN (16:25)
[2022-06-14] MEDS ORDERED: KCL 20 MEQ/WATER INJ PREMIX 200 ML IV PRN (16:25)
[2022-06-14] MEDS ORDERED: POTASSIUM CHLORIDE 10 MEQ TABER PO PRN (16:25)
[2022-06-14] MEDS ORDERED: ACETAMINOPHEN 325 MG TAB PO PRN (16:25)
[2022-06-14] MEDS ORDERED: MAG SULF 2000 MG/WATER PREMIX 50 ML IV PRN (16:25)
[2022-06-14] MEDS ORDERED: HYDROcodone/APAP 5/325 MG 1 TAB TAB PO PRN (16:25)
[2022-06-14] MEDS ORDERED: CLONIDINE HYDROCHLORIDE 0.1 MG TAB PO SCH (16:30)
[2022-06-14] MEDS ORDERED: cloNIDine-TTS1 0.1 MG/24 HR 1 EA PATCH TD SCH (16:30)
[2022-06-14] MEDS ORDERED: MEROPENEM 1,000 MG in NACL 0.9% 50 ML IV SCH (16:30)
[2022-06-14] MEDS ORDERED: FOLIC ACID 1 MG TAB PO SCH ×2 (16:35→17:10)
[2022-06-14] MEDS ORDERED: THIAMINE 200 MG/2 ML VIAL IV SCH (16:35)
[2022-06-14] MEDS ORDERED: DEXT 5% / NACL 0.45% 1,000 ML IV SCH (16:35)
[2022-06-14] MEDS ORDERED: LORazepam 1 MG TAB PO PRN ×2 (16:35)
[2022-06-14] MEDS ORDERED: MULTIVITAMIN 1 TAB PO SCH (16:35)
[2022-06-14] MEDS ORDERED: THIAMINE 100 MG TAB PO SCH (16:35)
--- NOTE | 2022-06-14 17:34 | NUR ---
PATIENT PULLED IV OUT, NEW IV ESTABISHED. 20G LAC
--- NOTE | 2022-06-14 17:50 | NUR ---
PATIENT FOUND IN THE ROOM WITH MULTIPLE OPEN BOTTLES OF ALCOHOL. PATIENT WAS ASKED TO PLACE ALCOHOL IN A BELONGINGS BAG, EXPLAINED TO PATIENT HE CANNOT HAVE ALCOHOL WHILE IN THE HOSPITAL. PATIENT STATED "I'M NOT GIVING YOU MY ALCOHOL I'M LEAVING." DR. BRAND CALLED AND NOTIFIED, STATED TO HAVE PATIENT SIGN AMA.
--- NOTE | 2022-06-14 17:53 | NUR ---
IV removed, catheter intact and site benign. Applied folded 4x4 gauze and tape to stop bleeding.
--- NOTE | 2022-06-14 17:54 | NUR ---
Pt requesting to leave against medical advice. Pt notified admitting doctor is not available to explain the risks and dangers of leaving prior to being discharged. Pt stating he would like to leave either way.
--- NOTE | 2022-06-14 18:10 | NUR ---
Pt signed AMA form prior to leaving facility, form placed in chart, Dr. Almanza made aware.
[2022-06-14] MEDS ORDERED: GABAPENTIN 300 MG CAP PO SCH (21:00)
[2022-06-15] MEDS ORDERED: VANCOMYCIN HCL 1.25 GM in NACL 0.9% 250 ML IV SCH (03:00)
[2022-06-15] MEDS ORDERED: THIAMINE 200 MG/2 ML VIAL IV SCH (09:00)
[2022-06-15] MEDS ORDERED: FOLIC ACID 1 MG TAB PO SCH (09:00)
[2022-06-15] MEDS ORDERED: MULTIVITAMIN 1 TAB PO SCH (09:00)
== END 2022-06-14 17:54 | disposition left against medical advice (07) | DRG 383 ==
LOC: MED 14:05 → MTU 16:24
PROVIDERS: ADMIT Internal Medicine; ATTEND Internal Medicine
DX: L03.115 Cellulitis of right lower limb (principal); D69.6 Thrombocytopenia, unspecified; F03.90 Unspecified dementia, unspecified severity, without behavioral disturbance, psychotic disturbance, mood disturbance, and anxiety; E11.9 Type 2 diabetes mellitus without complications; D50.9 Iron deficiency anemia, unspecified; E80.6 Other disorders of bilirubin metabolism; Z20.822 Contact with and (suspected) exposure to COVID-19; I10 Essential (primary) hypertension; Z53.29 Procedure and treatment not carried out because of patient's decision for other reasons; F17.210 Nicotine dependence, cigarettes, uncomplicated; F10.239 Alcohol dependence with withdrawal, unspecified; Y90.9 Presence of alcohol in blood, level not specified; R74.01 Elevation of levels of liver transaminase levels
CPT/HCPCS: 36415; 71045; 80053; 83605; 85025; 87040; 87081; 99285; G0482; J2185; J3370; J7030

== ENCOUNTER 2022-06-15 10:00 | Emergency (ER) | payer OTHER ==
[~2022-06-15] VITALS: Ht 180.3 cm; Wt 104.3 kg
[2022-06-15 10:26] VITALS: BP 171/80
--- NOTE | 2022-06-15 10:28 | NUR ---
PATIENT PRESENTS TO ED WITH ABDOMINAL PAIN . PT STATES HE SIGNED OUT AMA LAST NIGHT BUT WOULD LIKE TO BE SEEN AGAIN . AAOX4 WITH UNSTEADY GAIT; LUNGS CLEAR BL; HR EVEN AND REGULAR; PATIENT STATES LAST ALCOHOLIC DRINK WAS LAST NIGHT. PATIENT STATES PAIN OF 10/10 AT THIS TIME; VSS; ER MD MADE AWARE OF PT STATUS.
--- NOTE | 2022-06-15 11:51 | NUR ---
PATIENT PROVIDED WITH URINE CUP, PATIENT REQUESTING FOR BED SO HE CAN STRETCH HIS LEGS. CHARGE NURSE IS AWARE
== END 2022-06-15 12:48 | disposition left against medical advice (07) ==
LOC: MED 10:00
DX: R10.9 Unspecified abdominal pain (principal); F10.239 Alcohol dependence with withdrawal, unspecified; Z53.21 Procedure and treatment not carried out due to patient leaving prior to being seen by health care provider

== ENCOUNTER 2022-06-16 07:43 | Emergency (ER) | payer OTHER ==
[~2022-06-16] VITALS: Ht 180.3 cm; Wt 108.0 kg
--- NOTE | 2022-06-16 07:45 | NUR ---
PT NOTED TO BE STANDING TO GET ON THE WHEELCHAIR
[2022-06-16 07:52] VITALS: BP 138/76
--- NOTE | 2022-06-16 07:52 | NUR ---
pt wc assisted to lobby
--- NOTE | 2022-06-16 08:00 | NUR ---
BIBA FROM STREET FOR ETOH. C/O RIGHT LOWER LEG PAIN. SEEN HERE FOR CHRONIC R LOWER LEG WOUNDS 4 DAYS AGO. ABRASION WOUND AT FACE S/P FALL X TODAY. GCS 14. DENIES LOC. BLOOD SUGAR 140 AT THIS TIME. PMH: CIRRHOSIS, METH ABUSE, HTN
--- NOTE | 2022-06-16 08:28 | NUR ---
PT TAKEN TO CT VIA W/C, ACCOMPANIED BY PARTS CLEANER.
--- NOTE | 2022-06-16 10:25 | NUR ---
PT ABLE TO STAND WITHOUT ASSISTANCE, UNSTABLE GAIT, NOTED TO BE SWAYING. ERMD MADE AWARE
[2022-06-16 12:12] VITALS: BP 129/97
== END 2022-06-16 12:11 | disposition home or self-care (01) ==
LOC: MED 07:43
DX: S09.90XA Unspecified injury of head, initial encounter (principal); F10.129 Alcohol abuse with intoxication, unspecified; M79.661 Pain in right lower leg; I10 Essential (primary) hypertension; F15.90 Other stimulant use, unspecified, uncomplicated; Z79.899 Other long term (current) drug therapy; W19.XXXA Unspecified fall, initial encounter; Y93.89 Activity, other specified; Y92.89 Other specified places as the place of occurrence of the external cause; Y99.8 Other external cause status
CPT/HCPCS: 70450; 99284

== ENCOUNTER 2022-09-18 20:11 | Emergency (ER) | payer OTHER ==
[~2022-09-18] VITALS: Ht 180.3 cm; Wt 137.4 kg
[~2022-09-18 20:11] MED LIST changes: +FURO-570 PO; +SPIR50TA PO; -SULF-954 PO
--- NOTE | 2022-09-18 20:17 | NUR ---
JOSE MARIA OROZCOS TO BED #9
[2022-09-18 20:20] VITALS: BP 136/78
--- NOTE | 2022-09-18 20:20 | NUR ---
BIBA for alcohol intoxication. per pt, last drink half an hour ago. pmhx liver cirrhosis and hypertension, chronic infection to legs. c/o left leg pain. denies allergies.
--- NOTE | 2022-09-18 20:37 | NUR ---
Patient being evaluated by physician at bedside.
--- NOTE | 2022-09-18 20:38 | NUR ---
Dr. Kc by bedside evaluating patient.
[2022-09-18] MEDS ORDERED: KETOROLAC 60 MG/2 ML VIAL IM ONE (20:45)
--- NOTE | 2022-09-18 21:09 | NUR ---
Tristen osei in EDM - 09/18/22 at [id number] Kc by bedside reevaluating patient, ended paracentesis. 5.1 liters removed.
[2022-09-18] MEDS ORDERED: CEPH-588 PO (21:16)
[2022-09-18] MEDS ORDERED: IBUP-2213 PO (21:16)
[2022-09-18] MEDS ORDERED: LIB25 PO (21:20)
--- NOTE | 2022-09-18 21:21 | NUR ---
Pt resting at this time. No c/o discomfort.
--- NOTE | 2022-09-19 00:10 | NUR ---
Pt awake at this time. No c/o discomfort. VSS
[2022-09-19 00:38] VITALS: BP 115/62
== END 2022-09-19 00:38 | disposition home or self-care (01) ==
LOC: MED 20:11
DX: L03.116 Cellulitis of left lower limb (principal); L03.115 Cellulitis of right lower limb; F10.129 Alcohol abuse with intoxication, unspecified; I10 Essential (primary) hypertension; Z79.899 Other long term (current) drug therapy; Z79.1 Long term (current) use of non-steroidal anti-inflammatories (NSAID); Z79.2 Long term (current) use of antibiotics
CPT/HCPCS: 96372; 99283; J1885

== ENCOUNTER 2022-09-25 13:29 | Inpatient (IN) | payer OTHER ==
[~2022-09-25] VITALS: Ht 180.3 cm; Wt 127.0 kg
[2022-09-25 13:29] VITALS: BP 149/86
[~2022-09-25 13:29] MED LIST changes: +CEPH-588 PO; +IBUP-2213 PO; +LIB25 PO
--- NOTE | 2022-09-25 13:42 | NUR ---
in bed 1 biba from [facility] for abd pain. soft, distended. bowel sounds present. hx cirrhosis. also noted with blw edema 2+. admits to meth use. denies chest pain,n,v,d,fever, chills, sob. aao x4. resp even and nonlabored. vss.
--- NOTE | 2022-09-25 13:45 | NUR ---
rectal temp 94. er aware
--- NOTE | 2022-09-25 14:09 | NUR ---
swabbed for covid. labs drawn
[2022-09-25 14:45] LABS: HEMATOCRIT 22.1 % (36-52); LYMPHOCYTES % (AUTO) 45.7 % (20.5-51.1); MEAN CORPUSCULAR HEMOGLOBIN 25 pg (27-31); MEAN CORPUSCULAR HGB CONC 31 g/dL (33-37); MEAN CORPUSCULAR VOLUME 81.5 fL (80-94); MONOCYTES # (AUTO) 0.3 K/uL (0.8-1.0); MONOCYTES % (AUTO) 13.7 % (1.7-9.3); NEUTROPHILS # (AUTO) 0.8 K/uL (1.8-7.7); NEUTROPHILS % (AUTO) 38.6 % (42.2-75.2); PLATELET COUNT (AUTO) 88 K/uL (140-450); RED BLOOD CELL COUNT(AUTO) 2.72 MIL/uL (4.20-6.10); RED CELL DISTRIBUTION WIDTH 20.7 % (11.6-13.7); WHITE BLOOD COUNT (AUTO) 2.2 K/uL (4.8-10.8)
[2022-09-25 14:47] LABS: HEMOGLOBIN 6.9 g/dL (12.0-18.0)
--- NOTE | 2022-09-25 14:49 | NUR ---
critical lab reported to dr. betancourt
[2022-09-25 14:58] LABS: PROTHROMBIN TIME 12.1 secs (10.8-13.4)
[2022-09-25 15:05] LABS: ALBUMIN 2.4 g/dL (3.4-5.0); ANION GAP 15.1 (8-16); ASPARTATE AMINOTRANSFERASE 55 U/L (15-37); CARBON DIOXIDE 23.6 mmol/L (21-32); CHLORIDE 106 mmol/L (98-107); CREATININE 0.8 mg/dL (0.6-1.3); GFR ARICAN-AMERICAN 135 mL/min (>90); GLUCOSE 101 mg/dL (74-106); LIPASE 78 U/L (73-393); POTASSIUM 3.7 mmol/L (3.5-5.1); SODIUM SERUM 141 mmol/L (136-145); TOTAL BILIRUBIN 1.9 mg/dL (0.0-1.0); UREA NITROGEN, BLOOD 15 mg/dL (7-18)
[2022-09-25] MEDS ORDERED: FUROSEMIDE 40 MG/4 ML VIAL IVP ONE (15:15)
--- NOTE | 2022-09-25 15:38 | NUR ---
given iv lasix as ordered
[2022-09-25] MEDS ORDERED: chlordiazePOXIDE 25 MG CAP PO ONE ×2 (16:10→23:30)
[2022-09-25 16:13] LABS: CKMB RELATIVE INDEX 2.7 (0.0-2.5); CREATINE KINASE MB 9.8 ng/mL (0-3.6)
[2022-09-25 16:14] LABS: ACETAMINOPHEN < 0.5 ug/ml (10-30); SALICYLATE < 2.8 mg/dL (2.8-20.0)
[2022-09-25] MEDS ORDERED: ACETAMINOPHEN 325 MG TAB PO PRN (17:20)
[2022-09-25] MEDS ORDERED: MORPHINE SULFATE 2 MG/ML SYR IVP PRN (17:20)
[2022-09-25] MEDS ORDERED: ONDANSETRON 4 MG/2 ML VIAL IVP PRN (17:20)
--- NOTE | 2022-09-25 17:37 | NUR ---
called lab re: prbc order. stated they will get it ready
--- NOTE | 2022-09-25 18:11 | NUR ---
Patient will be admitted to care of dr. das. Admited to Med/Surg. Will go to room 112a. Belongings list completed. Report to юлия valiente.
--- NOTE | 2022-09-25 18:13 | NUR ---
Admitted from , with chief complaint of ABDOMINAL PAIN/INTOXICATION , 42 y/o ,Male, Cooperative, oriented to call light, bed, phone,television, bathroom, smoking policy, visiting hours, procedures, ID bracelet on. Belongings list checked. patient received from ER via gurney a/ox4 , vss , skin noit intact , abdominal distention , lower extremity edema , with two IV INTACT , safety proaction applied , side rails up x3 , bed in lower position , call light within reach , on cardiac diet patient for blood transfusion , still under observe .
[2022-09-25 18:17] VITALS: BP 128/70
--- NOTE | 2022-09-25 19:05 | NUR ---
REPORT GIVEN TO MAGUI MEDINA ALL HER QUESTION ANSWER .
--- NOTE | 2022-09-25 23:20 | NUR ---
PER PT HE WANTS TO GO HOME . WHEN I ASK HIM
--- NOTE | 2022-09-25 23:32 | NUR ---
PER PT GIVE LIBRIUM FIRST THEN THE BLOOD TRANSFUSSION . WILL CARRY OUT
[2022-09-25] MEDS ORDERED: chlordiazePOXIDE 25 MG CAP ONE (23:35)
--- NOTE | 2022-09-25 23:36 | NUR ---
PER ESTHELA CHARGE NURSE HE CALLED THE PHARMACIST DIRECTLY . AND THE PHARMACIST VERIFIED IT PER ESTHELA . THIS AGREEEMENT DONE BY ESTHELA DUE TO THE PHARMACIST CAN'T CONNECT DUE TO SYSTEM . PER ESTHELA COMMAND OVERRIDE THE LIBRIUM 25MG / CAP AND GIVE IT .
[2022-09-26] VITALS: BP 140/78
--- NOTE | 2022-09-26 00:36 | NUR ---
PER PT I WANTS TO EAT FIRST BEFORE BLOOD TRANSFUSSION . WILL PROVIDE SOMETHING TO EAT . Addendum: 09/26/22 at 0046 by Doris Soares RN BS CHECK 162
--- NOTE | 2022-09-26 00:53 | NUR ---
C/O MUSCLE PAIN - REQUESTING TYLENOL - WILL GIVE IT . , WILL CONT. TO MONITOR , URINAL / CALL LIGHT WITHIN REACH .
--- NOTE | 2022-09-26 01:00 | NUR ---
BLOOD PRC READY - FOR BT , W/ CONSENT , HGB 6.9
--- NOTE | 2022-09-26 01:30 | NUR ---
PRE BT V/S - T 98 . 7 , BP 140/72 , HR 117 RR 20 , 02 SAT 99 5 , THERE IS NON PITTING EDEMA ON BOTH LEGS , AND ENLARGED ABDOMEN PRIOR TO BT , DENIES PAIN , CHARGE NURSE ESTHELA INFORM . WILL CONT. TO MONITOR , CALL LIGHT / URINAL WITHINH REACH , PT IS SO MOVEABLE WHILE ON BED , SIDE RAILS UP , ENSURE SAFETY . WILL CONT. TO MONITOR
--- NOTE | 2022-09-26 01:40 | NUR ---
BT STARTED , FOR CLOSELY WATCH , BT START AT 20 CC/ HR - IF NO UNTOWARDS S/SX , WILL INCREASE THE RATE PROTOCOL , CALL LIGHT WITHIN REACH , WILL CONT. TO MONITOR .
--- NOTE | 2022-09-26 01:55 | NUR ---
NO BT REACTION , WILL CONT. TO MONITOR , NO COMPLAIN MADE .
--- NOTE | 2022-09-26 02:10 | NUR ---
NO UNTOWARDS S/SX NOTED , NO COMPLAIN MADE , SLEEPING BUT EASILY AROUSABLE .
--- NOTE | 2022-09-26 03:00 | NUR ---
HIT THE CALL BENNIE ELLISON NEEDLE , ALMOST OUT OF PLACE , WILL RE INSERT NEW ONE - STAT . Addendum: 09/26/22 at 0516 by Doris Soares RN AT 0300 IV NEEDLE REMOVE , INTACT , MIN. BLEEDING , WILL CONT. TO MONITOR
--- NOTE | 2022-09-26 03:02 | NUR ---
G 18 AT RIGHT AC INSERTED C/O ER NURSE , PROCEDURE TOLERATED WELL , MIN. BLEEDING . WILL CONT. THE BT .
--- NOTE | 2022-09-26 04:00 | NUR ---
NO UNTOWARDS S/SX NOTED , WILL CONT. TO MONITOR , NO COMPLAIN MADE , CALL LIGHT WITHIN REACH .
--- NOTE | 2022-09-26 05:20 | NUR ---
BT COMPLETED , NO UNTOWARDS S/SX NOTED , WHEN I'M ABOUT TO DISCONNECT THE IV TUBING - PT SAID I WANTS TO GO HOME AMA NOW , EXPLAIN TO THE PT THE CONSEQUENCES IF HE WILL GO HOME AMA , BUT THE PT STILL INSIST TO GO HOME , INFORM CHARGE NURSE . PER PT . HE IS WILLING TO GO SIGN THE AMA .WAIVER Addendum: 09/26/22 at 0703 by Doris Soares RN AT 0520 PT VERBALIZES UNDERSTANDING ABOUT THE CONSEQUENCES OF AMA . - SUMANTH
--- NOTE | 2022-09-26 05:55 | NUR ---
PT . SIGNED THE AMA WAIVER , INSTRUCT THE PT IF HE FEELS DOES NOT RIGHT OR ANY UNTOWARD S/SX GO TO NEAREST HOSPITAL , PT. VERBALIZES UNDERSTANDING .
--- NOTE | 2022-09-26 06:20 | NUR ---
DISCHARGE AMA , BP 140/70 , RR 20 , HR 105 , O2 SAT 99 % T 98 .7 F , NO COMPLAIN MADE , NO UNTOWARDS S/SX NOTED AT THIS TIME , STEADY GAIT , AAOX4 .
[2022-09-26] MEDS ORDERED: FUROSEMIDE 40 MG/4 ML VIAL IVP ONE (09:00)
[2022-09-26] MEDS ORDERED: chlordiazePOXIDE 25 MG CAP PO SCH (09:00)
[2022-09-26] MEDS ORDERED: SPIRONOLACTONE 25 MG TAB PO ONE (09:00)
--- NOTE | 2022-09-26 09:36 | NUR ---
WOUND CONSULT NOT DONE, PT. DISCHARGED.
== END 2022-09-26 06:25 | disposition left against medical advice (07) | DRG 663 ==
LOC: MED 13:29 → MTU 17:22
PROVIDERS: ADMIT Hospitalist; ATTEND Hospitalist
PROC: 30233N1 Transfusion of Nonautologous Red Blood Cells into Peripheral Vein, Percutaneous Approach (ICD-10-PCS; principal; 2022-09-26)
DX: D50.9 Iron deficiency anemia, unspecified (principal); D69.6 Thrombocytopenia, unspecified; J81.1 Chronic pulmonary edema; E44.1 Mild protein-calorie malnutrition; I11.0 Hypertensive heart disease with heart failure; I50.9 Heart failure, unspecified; E11.9 Type 2 diabetes mellitus without complications; E78.5 Hyperlipidemia, unspecified; F10.139 Alcohol abuse with withdrawal, unspecified; E80.6 Other disorders of bilirubin metabolism; F10.129 Alcohol abuse with intoxication, unspecified; Z20.822 Contact with and (suspected) exposure to COVID-19; Z91.199 Patient's noncompliance with other medical treatment and regimen due to unspecified reason; Z59.00 Homelessness unspecified; Z79.2 Long term (current) use of antibiotics; Z79.899 Other long term (current) drug therapy; Z68.39 Body mass index [BMI] 39.0-39.9, adult
CPT/HCPCS: 36415; 36430; 71045; 80053; 82550; 82553; 82948; 83690; 84484; 85025; 85610; 85730; 86886; 86900; 86901; 86920; 93005; 96374; 99291; G0480; G0482; J1940; P9016; Q0092

== ENCOUNTER 2022-10-14 01:25 | Emergency (ER) | payer OTHER ==
[~2022-10-14] VITALS: Ht 182.9 cm; Wt 104.3 kg
[2022-10-14 01:35] VITALS: BP 210/119
--- NOTE | 2022-10-14 01:35 | NUR ---
MONTRELL VIEIRA. TAKEN TO BED 1
[2022-10-14] MEDS ORDERED: CEPH-588 PO (05:05)
[2022-10-14] MEDS ORDERED: LIB25 PO (05:05)
[2022-10-14 05:57] VITALS: BP 154/83
[2022-10-15] MEDS ORDERED: ACET-10509 PO (14:27)
[2022-10-15] MEDS ORDERED: CEPH-588 PO (14:27)
== END 2022-10-14 05:58 | disposition home or self-care (01) ==
LOC: MED 01:25
DX: L03.115 Cellulitis of right lower limb (principal); R10.9 Unspecified abdominal pain; F10.90 Alcohol use, unspecified, uncomplicated; I10 Essential (primary) hypertension; E11.9 Type 2 diabetes mellitus without complications; Z79.4 Long term (current) use of insulin; Z79.899 Other long term (current) drug therapy; Z59.00 Homelessness unspecified; Y90.9 Presence of alcohol in blood, level not specified
CPT/HCPCS: 99283

== ENCOUNTER 2022-10-15 14:01 | Emergency (ER) | payer OTHER ==
[~2022-10-15] VITALS: Ht 172.7 cm; Wt 90.7 kg
[2022-10-15 14:19] VITALS: BP 160/76
[2022-10-15] MEDS ORDERED: cefTRIAXone 1,000 MG in LIDOCAINE MPF 1% 2.1 ML IM ONE (14:20)
[2022-10-15] MEDS ORDERED: IBUPROFEN 600 MG TAB PO ONE (14:20)
--- NOTE | 2022-10-15 14:24 | NUR ---
AMBULATED TO CHAIR C AFTER USING BATHROOM TO MOVE BOWELS, SUPERVISED BY PD
[2022-10-15] MEDS ORDERED: ACET-10509 PO (14:27)
[2022-10-15] MEDS ORDERED: CEPH-588 PO (14:27)
[2022-10-15] MEDS ORDERED: cefTRIAXone 1,000 MG VIAL ONE (14:30)
[2022-10-15] MEDS ORDERED: LIDOCAINE MPF 1% 5 ML ONE (14:31)
--- NOTE | 2022-10-15 15:04 | NUR ---
PATIENT BIB [employer]. PATIENT EXAMINED BY DR.DELA MATOS. PATIENT MEDICALLY CLEARED AND RELEASED IN CUSTODY IN STABLE CONDITION. ORIGINAL PRE-BOOK FORM GIVEN TO OFFICER.
== END 2022-10-15 15:00 ==
LOC: MED 14:01
DX: L03.116 Cellulitis of left lower limb (principal); L03.115 Cellulitis of right lower limb; I10 Essential (primary) hypertension; E11.9 Type 2 diabetes mellitus without complications; Z79.4 Long term (current) use of insulin; Z79.899 Other long term (current) drug therapy
CPT/HCPCS: 96372; 99283; J0696; J2001

== ENCOUNTER 2023-03-16 20:50 | Emergency (ER) | payer OTHER ==
[~2023-03-16] VITALS: Ht 180.3 cm; Wt 128.8 kg
[~2023-03-16 20:50] MED LIST changes: +ACET-10509 PO
[2023-03-16 21:00] VITALS: PULSE 93; RESP 18; TEMP 98.4; O2SAT 98
[2023-03-16] MEDS ORDERED: KETOROLAC 60 MG/2 ML VIAL IM ONE (21:30)
[2023-03-16] MEDS ORDERED: IBUP-2213 PO ×2 (21:57→22:46)
== END 2023-03-16 22:40 | disposition home or self-care (01) ==
LOC: MED 20:50
DX: R60.9 Edema, unspecified (principal); R10.9 Unspecified abdominal pain; M79.89 Other specified soft tissue disorders; E11.9 Type 2 diabetes mellitus without complications; F17.200 Nicotine dependence, unspecified, uncomplicated; F12.90 Cannabis use, unspecified, uncomplicated; I10 Essential (primary) hypertension; Z79.899 Other long term (current) drug therapy; Z98.890 Other specified postprocedural states
CPT/HCPCS: 96372; 99283; J1885

== ENCOUNTER 2023-04-05 20:56 | Emergency (ER) | payer OTHER ==
[~2023-04-05] VITALS: Ht 177.8 cm; Wt 104.3 kg
[2023-04-05 20:58] VITALS: BP 133/77; PULSE 76; RESP 20; TEMP 98; O2SAT 96
[2023-04-05] MEDS ORDERED: FAMOTIDINE 20 MG/2 ML VIAL IVP ONE (22:30)
[2023-04-05] MEDS ORDERED: LORazepam 2 MG/ML VIAL IVP ONE (22:30)
[2023-04-05] MEDS ORDERED: ONDANSETRON 4 MG/2 ML VIAL IVP ONE (22:30)
[2023-04-05 23:08] LABS: BASOPHILS # (AUTO) 0.1 K/uL (0.00-0.22); BASOPHILS % (AUTO) 1.4 % (0.0-2.0); EOSINOPHILS # (AUTO) 0.1 K/uL (0-0.4); EOSINOPHILS % (AUTO) 1.6 % (0.0-4.0); HEMOGLOBIN 9.1 g/dL (12.0-18.0); LYMPHOCYTES # (AUTO) 0.7 K/uL (2.0-11.5); MEAN CORPUSCULAR HEMOGLOBIN 31 pg (27-31); MEAN CORPUSCULAR HGB CONC 32 g/dL (33-37); MEAN CORPUSCULAR VOLUME 94.8 fL (80-94); MONOCYTES # (AUTO) 0.7 K/uL (0.8-1.0); MONOCYTES % (AUTO) 18.2 % (1.7-9.3); NEUTROPHILS # (AUTO) 2.2 K/uL (1.8-7.7); NEUTROPHILS % (AUTO) 59.8 % (42.2-75.2); PLATELET COUNT (AUTO) 48 K/uL (140-450); RED BLOOD CELL COUNT(AUTO) 2.95 MIL/uL (4.20-6.10); RED CELL DISTRIBUTION WIDTH 16.6 % (11.6-13.7); WHITE BLOOD COUNT (AUTO) 3.7 K/uL (4.8-10.8)
[2023-04-05 23:38] LABS: ALANINE AMINOTRANSFERASE 17 U/L (12-78); ALBUMIN 1.7 g/dL (3.4-5.0); ALCOHOL, BLOOD 190 mg/dL (<10); ALKALINE PHOSPHATASE 268 U/L (50-136); ANION GAP 12.8 (8-16); ASPARTATE AMINOTRANSFERASE 48 U/L (15-37); CALCIUM 7.6 mg/dL (8.5-10.1); CARBON DIOXIDE 21.9 mmol/L (21-32); CHLORIDE 104 mmol/L (98-107); CREATININE 1.6 mg/dL (0.6-1.3); GFR ARICAN-AMERICAN 61 mL/min (>90); GFR NON ARICAN-AMERICAN 50 mL/min (>90); GLUCOSE 150 mg/dL (74-106); LIPASE 49 U/L (16-77); POTASSIUM 3.7 mmol/L (3.5-5.1); SODIUM SERUM 135 mmol/L (136-145); TOTAL BILIRUBIN 5.9 mg/dL (0.0-1.0); TOTAL PROTEIN, SERUM 6.6 g/dL (6.4-8.2); UREA NITROGEN, BLOOD 25 mg/dL (7-18)
[2023-04-05 23:41] LABS: APPEARANCE,URINE SL CLOUDY (CLEAR); BILIRUBIN,URINE 2+ (NEGATIVE); BLOOD, URINE TRACE-I (NEGATIVE); COLOR,URINE BROWN (YELLOW); LEUKOCYTE ESTERASE ,URINE TRACE (NEGATIVE); NITRITE, URINE NEGATIVE (NEGATIVE); PROTEIN,URINE 2+ (NEGATIVE); UGLUCOSE TRACE (NEGATIVE)
[2023-04-05 23:44] LABS: ACETONE, SERUM Negative (NEGATIVE)
[2023-04-05] MEDS ORDERED: NACL 0.9% 500 ML IV ONE (23:50)
[2023-04-05 23:52] LABS: AMPHETAMINE, URINE NEGATIVE ng/ml (NEG <=1000); BARBITURATE, URINE NEGATIVE ng/ml (NEG <=200); BENZODIAZEPINE, URINE POSITIVE ng/mL (NEG <=200); CANNABINOID, URINE NEGATIVE ng/mL (NEG <=50); COCAINE, URINE NEGATIVE ng/mL (NEG <=300); OPIATE, URINE POSITIVE ng/mL (NEG <=2000); PHENCYCLIDINE SCREEN,URINE NEGATIVE ng/mL (NEG <=25)
[2023-04-05 23:54] LABS: ICTOTEST POSITIVE (NEGATIVE)
[2023-04-05 23:55] LABS: BACTERIA,URINE >30 (MANY) /HPF (None Seen); MUCUS,URINE 1+ /LPF (None Seen); RBC,URINE 0-5 /HPF (0-5); SQUAMOUS EPITHELIAL CELL,UR 0-3 (FEW) /LPF (0-3 (FEW)); WBC,URINE 0-5 /HPF (0-5)
[2023-04-05] MEDS ORDERED: cefTRIAXone 1,000 MG VIAL ONE (23:59)
[2023-04-06] MEDS ORDERED: CIPR500T4 PO (02:27)
[2023-04-06 02:59] VITALS: BP 122/84; PULSE 91; RESP 20; TEMP 98.3; O2SAT 100
== END 2023-04-06 02:59 | disposition home or self-care (01) ==
LOC: MED 20:56
DX: F10.129 Alcohol abuse with intoxication, unspecified (principal); N39.0 Urinary tract infection, site not specified; N17.9 Acute kidney failure, unspecified; E86.0 Dehydration; K76.9 Liver disease, unspecified; R80.9 Proteinuria, unspecified; E80.7 Disorder of bilirubin metabolism, unspecified; E11.9 Type 2 diabetes mellitus without complications; I10 Essential (primary) hypertension; Z98.890 Other specified postprocedural states; Z79.899 Other long term (current) drug therapy; Z79.1 Long term (current) use of non-steroidal anti-inflammatories (NSAID); Z79.2 Long term (current) use of antibiotics; Y90.6 Blood alcohol level of 120-199 mg/100 ml
CPT/HCPCS: 36415; 80053; 80305; 81001; 82009; 83605; 83690; 85025; 87040; 96365; 96374; 96375; 99285; G0482; J0696; J2060; J2405; J3490; J7030

== ENCOUNTER 2023-04-12 15:45 | Emergency (ER) | payer OTHER ==
[~2023-04-12] VITALS: Ht 172.7 cm; Wt 84.4 kg
[~2023-04-12 15:45] MED LIST changes: +CIPR500T4 PO
[2023-04-12 15:46] VITALS: BP 144/80; PULSE 79; RESP 17; TEMP 97.6; O2SAT 98
== END 2023-04-12 16:33 | disposition left against medical advice (07) ==
LOC: MED 15:45
DX: F10.129 Alcohol abuse with intoxication, unspecified (principal); M79.673 Pain in unspecified foot; Z53.21 Procedure and treatment not carried out due to patient leaving prior to being seen by health care provider; Y90.9 Presence of alcohol in blood, level not specified
CPT/HCPCS: 99281

== ENCOUNTER 2023-05-13 14:26 | Emergency (ER) | payer OTHER ==
[~2023-05-13] VITALS: Ht 175.3 cm; Wt 176.9 kg
[2023-05-13 14:37] VITALS: PULSE 80; RESP 20; TEMP 98.1; O2SAT 98
[2023-05-13 15:30] LABS: BASOPHILS # (AUTO) 0.1 K/uL (0.00-0.22); BASOPHILS % (AUTO) 1.3 % (0.0-2.0); EOSINOPHILS # (AUTO) 0.2 K/uL (0-0.4); EOSINOPHILS % (AUTO) 3.1 % (0.0-4.0); HEMOGLOBIN 7.9 g/dL (12.0-18.0); LYMPHOCYTES # (AUTO) 0.9 K/uL (2.0-11.5); LYMPHOCYTES % (AUTO) 16.7 % (20.5-51.1); MEAN CORPUSCULAR HEMOGLOBIN 28 pg (27-31); MEAN CORPUSCULAR HGB CONC 32 g/dL (33-37); MEAN CORPUSCULAR VOLUME 87.3 fL (80-94); MONOCYTES # (AUTO) 0.5 K/uL (0.8-1.0); MONOCYTES % (AUTO) 9.9 % (1.7-9.3); NEUTROPHILS # (AUTO) 3.8 K/uL (1.8-7.7); PLATELET COUNT (AUTO) 98 K/uL (140-450); RED BLOOD CELL COUNT(AUTO) 2.86 MIL/uL (4.20-6.10); RED CELL DISTRIBUTION WIDTH 18.2 % (11.6-13.7); WHITE BLOOD COUNT (AUTO) 5.5 K/uL (4.8-10.8)
[2023-05-13 15:43] LABS: ALBUMIN 1.7 g/dL (3.4-5.0); ANION GAP 11.3 (8-16); CALCIUM 7.5 mg/dL (8.5-10.1); CARBON DIOXIDE 26.3 mmol/L (21-32); CREATININE 1.2 mg/dL (0.6-1.3); POTASSIUM 3.6 mmol/L (3.5-5.1); TOTAL BILIRUBIN 3.7 mg/dL (0.0-1.0); TOTAL PROTEIN, SERUM 7.5 g/dL (6.4-8.2)
[2023-05-13] MEDS ORDERED: CEPH-588 PO (16:23)
[2023-05-13 16:45] VITALS: PULSE 80; RESP 20; TEMP 98.1; O2SAT 98
== END 2023-05-13 16:45 | disposition home or self-care (01) ==
LOC: MED 14:26
DX: L03.115 Cellulitis of right lower limb (principal); F10.90 Alcohol use, unspecified, uncomplicated; R10.9 Unspecified abdominal pain; E11.9 Type 2 diabetes mellitus without complications; I10 Essential (primary) hypertension; Z79.4 Long term (current) use of insulin; Z79.899 Other long term (current) drug therapy; Y90.9 Presence of alcohol in blood, level not specified
CPT/HCPCS: 36415; 80053; 83690; 85025; 99283

== ENCOUNTER 2023-05-17 23:24 | Emergency (ER) | payer OTHER ==
[~2023-05-17] VITALS: Ht 175.3 cm; Wt 90.7 kg
[2023-05-17 23:35] VITALS: BP 131/79; PULSE 94; RESP 16; TEMP 98.2; O2SAT 98
[2023-05-17 23:58] LABS: BASOPHILS # (AUTO) 0.1 K/uL (0.00-0.22); EOSINOPHILS # (AUTO) 0.1 K/uL (0-0.4); EOSINOPHILS % (AUTO) 2.6 % (0.0-4.0); HEMATOCRIT 26.9 % (36-52); HEMOGLOBIN 8.8 g/dL (12.0-18.0); LYMPHOCYTES # (AUTO) 1.1 K/uL (2.0-11.5); LYMPHOCYTES % (AUTO) 18.8 % (20.5-51.1); MEAN CORPUSCULAR HEMOGLOBIN 28 pg (27-31); MEAN CORPUSCULAR HGB CONC 33 g/dL (33-37); MEAN CORPUSCULAR VOLUME 86.7 fL (80-94); MONOCYTES # (AUTO) 0.7 K/uL (0.8-1.0); MONOCYTES % (AUTO) 12.9 % (1.7-9.3); NEUTROPHILS # (AUTO) 3.6 K/uL (1.8-7.7); NEUTROPHILS % (AUTO) 64.7 % (42.2-75.2); PLATELET COUNT (AUTO) 72 K/uL (140-450); RED BLOOD CELL COUNT(AUTO) 3.11 MIL/uL (4.20-6.10); RED CELL DISTRIBUTION WIDTH 18.9 % (11.6-13.7); WHITE BLOOD COUNT (AUTO) 5.6 K/uL (4.8-10.8)
[2023-05-18 00:11] LABS: ALBUMIN 1.5 g/dL (3.4-5.0); ANION GAP 8.6 (8-16); CALCIUM 7.4 mg/dL (8.5-10.1); CARBON DIOXIDE 30.9 mmol/L (21-32); CREATININE 0.9 mg/dL (0.6-1.3); POTASSIUM 3.5 mmol/L (3.5-5.1); TOTAL BILIRUBIN 4.9 mg/dL (0.0-1.0); TOTAL PROTEIN, SERUM 7.2 g/dL (6.4-8.2)
== END 2023-05-18 04:06 | disposition home or self-care (01) ==
LOC: MED 23:24
DX: F10.129 Alcohol abuse with intoxication, unspecified (principal); E11.9 Type 2 diabetes mellitus without complications; I10 Essential (primary) hypertension; Z79.4 Long term (current) use of insulin; Z79.899 Other long term (current) drug therapy; Y90.9 Presence of alcohol in blood, level not specified
CPT/HCPCS: 36415; 80053; 85025; 99283; G0482

== ENCOUNTER 2023-10-11 03:55 | Emergency (ER) | payer OTHER ==
[~2023-10-11] VITALS: Ht 165.1 cm; Wt 113.4 kg
[~2023-10-11 03:55] MED LIST changes: +CHLO-836 PO; +LACT-191 PO; -LIB25 PO
[2023-10-11] MEDS ORDERED: FURO-570 PO (05:09)
[2023-10-11] MEDS ORDERED: CEPH-588 PO (05:09)
[2023-10-11 05:17] VITALS: BP 142/70; PULSE 92; RESP 16; TEMP 97.3; O2SAT 99
[2023-10-11 05:20] VITALS: BP 142/70; PULSE 92; RESP 16; TEMP 97.3; O2SAT 99
== END 2023-10-11 05:26 | disposition home or self-care (01) ==
LOC: MED 03:55
DX: I11.0 Hypertensive heart disease with heart failure (principal); I50.9 Heart failure, unspecified; R60.0 Localized edema; E11.9 Type 2 diabetes mellitus without complications; Z79.1 Long term (current) use of non-steroidal anti-inflammatories (NSAID); Z79.899 Other long term (current) drug therapy
CPT/HCPCS: 99283

== ENCOUNTER 2023-10-11 11:39 | Emergency (ER) | payer OTHER ==
[~2023-10-11] VITALS: Ht 182.9 cm; Wt 136.1 kg
[2023-10-11 11:44] VITALS: RESP 18; TEMP 97.9
[2023-10-11 16:00] VITALS: O2SAT 98
[2023-10-11 17:05] VITALS: BP 134/76; PULSE 84; RESP 18; TEMP 98.2
== END 2023-10-11 17:01 | disposition home or self-care (01) ==
LOC: MED 11:39
DX: F10.129 Alcohol abuse with intoxication, unspecified (principal); Y90.9 Presence of alcohol in blood, level not specified
CPT/HCPCS: 82948; 99285

== ENCOUNTER 2023-10-24 19:20 | Emergency (ER) | payer OTHER ==
[~2023-10-24] VITALS: Ht 180.3 cm; Wt 113.4 kg
[2023-10-24 19:20] VITALS: BP 143/90; PULSE 104; RESP 17; TEMP 97.7; O2SAT 100
[2023-10-24] MEDS ORDERED: BACI-418 TP (20:39)
[2023-10-24 21:05] VITALS: BP 143/90; PULSE 90; RESP 17; TEMP 98; O2SAT 100
== END 2023-10-24 21:05 | disposition home or self-care (01) ==
LOC: MED 19:20
DX: S80.922A Unspecified superficial injury of left lower leg, initial encounter (principal); S80.921A Unspecified superficial injury of right lower leg, initial encounter; F10.129 Alcohol abuse with intoxication, unspecified; Z79.899 Other long term (current) drug therapy; Y90.9 Presence of alcohol in blood, level not specified; X58.XXXA Exposure to other specified factors, initial encounter; Y93.89 Activity, other specified; Y92.89 Other specified places as the place of occurrence of the external cause; Y99.8 Other external cause status
CPT/HCPCS: 99283

== ENCOUNTER 2023-12-24 12:53 | Emergency (ER) | payer OTHER ==
[~2023-12-24] VITALS: Ht 167.6 cm; Wt 90.7 kg
[~2023-12-24 12:53] MED LIST changes: +BACI-418 TP; +CHLO-757 PO; -CHLO-836 PO
[2023-12-24 12:55] VITALS: BP 165/81; PULSE 78; RESP 78; TEMP 98.1; O2SAT 99
[2023-12-24] MEDS ORDERED: CEPH-588 PO (13:26)
[2023-12-24] MEDS ORDERED: IBUP-2213 PO (13:26)
[2023-12-24] MEDS ORDERED: FURO-570 PO (13:27)
== END 2023-12-24 13:48 | disposition home or self-care (01) ==
LOC: MED 12:53
DX: S00.11XA Contusion of right eyelid and periocular area, initial encounter (principal); R60.0 Localized edema; L03.115 Cellulitis of right lower limb; R03.0 Elevated blood-pressure reading, without diagnosis of hypertension; I50.9 Heart failure, unspecified; E11.9 Type 2 diabetes mellitus without complications; Z79.1 Long term (current) use of non-steroidal anti-inflammatories (NSAID); Z79.2 Long term (current) use of antibiotics; Z79.899 Other long term (current) drug therapy; Y04.8XXA Assault by other bodily force, initial encounter; Y93.89 Activity, other specified; Y92.488 Other paved roadways as the place of occurrence of the external cause; Y99.8 Other external cause status
CPT/HCPCS: 99283

== ENCOUNTER 2024-01-03 11:58 | Inpatient (IN) | payer OTHER ==
[~2024-01-03] VITALS: Ht 177.8 cm; Wt 108.9 kg
[2024-01-03 12:05] VITALS: BP 130/74; PULSE 115; RESP 16; TEMP 98; O2SAT 95
[2024-01-03 12:30] VITALS: O2SAT 94
[2024-01-03 12:57] LABS: ANION GAP 14.3 (8-16); CALCIUM 7.7 mg/dL (8.5-10.1); CARBON DIOXIDE 25.8 mmol/L (21-32); CREATININE 1.3 mg/dL (0.6-1.3); POTASSIUM 3.1 mmol/L (3.5-5.1)
[2024-01-03 13:02] LABS: ALBUMIN 2.2 g/dL (3.4-5.0); BILIRUBIN,DIRECT 7.3 mg/dL (0.0-0.3); TOTAL BILIRUBIN 8.3 mg/dL (0.0-1.0); TOTAL PROTEIN, SERUM 6.4 g/dL (6.4-8.2)
[2024-01-03 13:15] LABS: EOSINOPHILS # (AUTO) 0.1 K/uL (0-0.4); EOSINOPHILS % (AUTO) 1.9 % (0.0-4.0); HEMATOCRIT 28.5 % (36-52); HEMOGLOBIN 9.2 g/dL (12.0-18.0); LYMPHOCYTES # (AUTO) 1.2 K/uL (2.0-11.5); LYMPHOCYTES % (AUTO) 35.3 % (20.5-51.1); MEAN CORPUSCULAR HEMOGLOBIN 28 pg (27-31); MEAN CORPUSCULAR HGB CONC 32 g/dL (33-37); MEAN CORPUSCULAR VOLUME 85.6 fL (80-94); MONOCYTES # (AUTO) 0.6 K/uL (0.8-1.0); MONOCYTES % (AUTO) 16.5 % (1.7-9.3); NEUTROPHILS # (AUTO) 1.6 K/uL (1.8-7.7); NEUTROPHILS % (AUTO) 45.3 % (42.2-75.2); RED BLOOD CELL COUNT(AUTO) 3.33 MIL/uL (4.20-6.10); WHITE BLOOD COUNT (AUTO) 3.5 K/uL (4.8-10.8)
[2024-01-03 13:30] LABS: PLATELET COUNT (AUTO) 46 K/uL (140-450)
[2024-01-03 13:31] LABS: RED CELL DISTRIBUTION WIDTH 22.4 % (11.6-13.7)
[2024-01-03 18:15] LABS: AMPHETAMINE, URINE NEGATIVE ng/ml (NEG <=1000); BARBITURATE, URINE NEGATIVE ng/ml (NEG <=200); BENZODIAZEPINE, URINE POSITIVE ng/mL (NEG <=200); CANNABINOID, URINE NEGATIVE ng/mL (NEG <=50); COCAINE, URINE NEGATIVE ng/mL (NEG <=300); OPIATE, URINE NEGATIVE ng/mL (NEG <=2000); PHENCYCLIDINE SCREEN,URINE NEGATIVE ng/mL (NEG <=25)
[2024-01-03 19:36] VITALS: O2SAT 100
[2024-01-03] MEDS: NACL 0.9% 2,000 ML IV ONE (20:05)
[2024-01-03] MEDS: POTASSIUM CHLORIDE 10 MEQ TABER PO ONE (20:39)
[2024-01-03] MEDS ORDERED: ONDANSETRON 4 MG/2 ML VIAL IVP PRN (22:30)
[2024-01-03] MEDS ORDERED: MORPHINE SULFATE 2 MG/ML SYR IVP PRN (22:30)
[2024-01-03] MEDS: NACL 0.9% 1,000 ML IV SCH ×2 (22:37→23:15)
[2024-01-03] MEDS: predniSONE 20 MG TAB PO SCH (23:00)
[2024-01-03 23:02] LABS: INR 1.56 (0.8-1.2); PROTHROMBIN TIME 16.1 secs (10.8-13.4)
[2024-01-03] MEDS ORDERED: CEPH250C16 PO (23:05)
[2024-01-03] MEDS ORDERED: LACT-191 PO (23:05)
[2024-01-03] MEDS ORDERED: FURO-572 PO (23:05)
[2024-01-04 02:14] VITALS: O2SAT 98
[2024-01-04 04:00] VITALS: BP 133/58; PULSE 91; PULSE 94; RESP 16; TEMP 97.4; O2SAT 93
[2024-01-04 07:26] LABS: BASOPHILS % (AUTO) 1.3 % (0.0-2.0); EOSINOPHILS % (AUTO) 0.1 % (0.0-4.0); HEMATOCRIT 27.2 % (36-52); HEMOGLOBIN 8.7 g/dL (12.0-18.0); LYMPHOCYTES # (AUTO) 0.2 K/uL (2.0-11.5); MEAN CORPUSCULAR HEMOGLOBIN 28 pg (27-31); MEAN CORPUSCULAR HGB CONC 32 g/dL (33-37); MEAN CORPUSCULAR VOLUME 86.9 fL (80-94); MONOCYTES # (AUTO) 0.1 K/uL (0.8-1.0); MONOCYTES % (AUTO) 3.3 % (1.7-9.3); NEUTROPHILS # (AUTO) 1.2 K/uL (1.8-7.7); NEUTROPHILS % (AUTO) 80.3 % (42.2-75.2); PLATELET COUNT (AUTO) 33 K/uL (140-450); RED BLOOD CELL COUNT(AUTO) 3.14 MIL/uL (4.20-6.10)
[2024-01-04 07:29] LABS: WHITE BLOOD COUNT (AUTO) 1.6 K/uL (4.8-10.8)
[2024-01-04 07:49] LABS: ANION GAP 13.3 (8-16); CALCIUM 7.4 mg/dL (8.5-10.1); CARBON DIOXIDE 25.6 mmol/L (21-32); MAGNESIUM 1.4 mg/dL (1.8-2.4); PHOSPHORUS 3.1 mg/dL (2.5-4.9); POTASSIUM 3.9 mmol/L (3.5-5.1); TOTAL BILIRUBIN 6.9 mg/dL (0.0-1.0); TOTAL PROTEIN, SERUM 6.2 g/dL (6.4-8.2)
[2024-01-04] MEDS ORDERED: MEDS-TO-BEDS MC SCH (09:00)
[2024-01-04] MEDS: ACETAMINOPHEN 325 MG TAB PO PRN (10:02)
[2024-01-04] MEDS ORDERED: LORazepam 1 MG TAB PO PRN (12:25)
[2024-01-04] MEDS: chlordiazePOXIDE 25 MG CAP PO SCH (13:35)
[2024-01-05] MEDS ORDERED: THIAMINE 100 MG TAB PO SCH (09:00)
[2024-01-05] MEDS ORDERED: FOLIC ACID 1 MG TAB PO SCH (09:00)
[2024-01-05] MEDS ORDERED: MULTIVITAMIN 1 TAB PO SCH (09:00)
== END 2024-01-04 15:30 | disposition left against medical advice (07) | DRG 280 ==
LOC: MED 11:58 → MMU 22:28
PROVIDERS: ADMIT Hospitalist; ATTEND Hospitalist
DX: K70.30 Alcoholic cirrhosis of liver without ascites (principal); K70.10 Alcoholic hepatitis without ascites; G92.9 Unspecified toxic encephalopathy; E43 Unspecified severe protein-calorie malnutrition; R65.10 Systemic inflammatory response syndrome (SIRS) of non-infectious origin without acute organ dysfunction; E83.51 Hypocalcemia; F10.139 Alcohol abuse with withdrawal, unspecified; I10 Essential (primary) hypertension; Z79.899 Other long term (current) drug therapy; Z68.34 Body mass index [BMI] 34.0-34.9, adult
CPT/HCPCS: 36415; 70450; 80048; 80053; 80076; 80305; 83735; 84100; 85025; 85610; 85730; 87081; 96360; 96361; 99285; G0482; J2270; J7512

== ENCOUNTER 2024-01-05 20:15 | Emergency (ER) | payer OTHER ==
[~2024-01-05] VITALS: Ht 167.6 cm; Wt 93.0 kg
[~2024-01-05 20:15] MED LIST changes: +CEPH250C16 PO; +FURO-572 PO
[2024-01-05 20:19] VITALS: BP 123/72; PULSE 93; RESP 14; TEMP 98.6; O2SAT 98
[2024-01-05 23:40] VITALS: BP 123/72; PULSE 93; RESP 14; TEMP 98.6; O2SAT 98
== END 2024-01-06 00:10 | disposition home or self-care (01) ==
LOC: MED 20:29
DX: F10.129 Alcohol abuse with intoxication, unspecified (principal); M79.606 Pain in leg, unspecified; Y90.9 Presence of alcohol in blood, level not specified; I50.9 Heart failure, unspecified; E11.9 Type 2 diabetes mellitus without complications; Z79.1 Long term (current) use of non-steroidal anti-inflammatories (NSAID); Z79.2 Long term (current) use of antibiotics; Z79.899 Other long term (current) drug therapy; Z59.00 Homelessness unspecified
CPT/HCPCS: 99283

== ENCOUNTER 2024-02-07 13:14 | Emergency (ER) | payer OTHER ==
[~2024-02-07] VITALS: Ht 175.3 cm; Wt 104.3 kg
[2024-02-07 13:20] VITALS: BP 142/78; PULSE 100; RESP 18; TEMP 98.4; O2SAT 98
[2024-02-07 18:32] VITALS: BP 145/81; PULSE 96; RESP 18; TEMP 98.3; O2SAT 98
== END 2024-02-07 20:14 | disposition home or self-care (01) ==
LOC: MED 13:14
DX: F10.129 Alcohol abuse with intoxication, unspecified (principal); I50.9 Heart failure, unspecified; E11.9 Type 2 diabetes mellitus without complications; Z79.899 Other long term (current) drug therapy; Y90.9 Presence of alcohol in blood, level not specified
CPT/HCPCS: 99283

== ENCOUNTER 2024-02-08 20:09 | Emergency (ER) | payer OTHER ==
[~2024-02-08] VITALS: Ht 172.7 cm; Wt 81.6 kg
[2024-02-08 20:17] VITALS: BP 140/90; PULSE 99; RESP 14; TEMP 97.6; O2SAT 99
[2024-02-09] MEDS: chlordiazePOXIDE 25 MG CAP PO SCH (00:15)
[2024-02-09] MEDS ORDERED: CHLO-757 PO (00:56)
== END 2024-02-09 01:02 | disposition home or self-care (01) ==
LOC: MED 20:09
DX: F10.239 Alcohol dependence with withdrawal, unspecified (principal); F41.9 Anxiety disorder, unspecified; F32.9 Major depressive disorder, single episode, unspecified; I11.0 Hypertensive heart disease with heart failure; I50.9 Heart failure, unspecified; E11.9 Type 2 diabetes mellitus without complications; Z98.890 Other specified postprocedural states; Z79.899 Other long term (current) drug therapy
CPT/HCPCS: 99283

== ENCOUNTER 2024-04-06 02:42 | Emergency (ER) | payer OTHER ==
[~2024-04-06] VITALS: Ht 172.7 cm; Wt 93.0 kg
[~2024-04-06 02:42] MED LIST changes: -ACET-10509 PO; +ACET500T99 PO
[2024-04-06 02:57] VITALS: BP 156/79; PULSE 99; RESP 14; TEMP 98.3; O2SAT 99
[2024-04-06] MEDS ORDERED: FURO-570 PO (03:14)
[2024-04-06] MEDS: KETOROLAC 60 MG/2 ML VIAL IM ONE (03:20)
== END 2024-04-06 03:46 | disposition home or self-care (01) ==
LOC: MED 02:42
DX: R60.0 Localized edema (principal); M79.604 Pain in right leg; M79.605 Pain in left leg; I11.0 Hypertensive heart disease with heart failure; I50.9 Heart failure, unspecified; E11.9 Type 2 diabetes mellitus without complications; F17.210 Nicotine dependence, cigarettes, uncomplicated; Z79.899 Other long term (current) drug therapy
CPT/HCPCS: 96372; 99283; J1885

== ENCOUNTER 2024-04-10 19:21 | Emergency (ER) | payer OTHER ==
[~2024-04-10] VITALS: Ht 180.3 cm; Wt 104.3 kg
[2024-04-10 19:22] VITALS: BP 132/68; PULSE 100; RESP 18; TEMP 98.6; O2SAT 98
== END 2024-04-10 21:53 | disposition home or self-care (01) ==
LOC: MED 19:21
DX: L03.115 Cellulitis of right lower limb (principal); F10.10 Alcohol abuse, uncomplicated; Z76.0 Encounter for issue of repeat prescription; I10 Essential (primary) hypertension; Z87.448 Personal history of other diseases of urinary system; Z79.899 Other long term (current) drug therapy; Y90.9 Presence of alcohol in blood, level not specified
CPT/HCPCS: 99283